=== PATIENT | male | born 1940 | race Caucasian/White ===

== ENCOUNTER 2017-11-15 14:55 | Inpatient (IN) | payer MEDICARE, BC ==
[~2017-11-15] VITALS: Ht 177.8 cm; Wt 75.3 kg
[2017-11-15] VITALS (7 sets, daily range): BP systolic 137–212; BP diastolic 73–91; PULSE 68–87; RESP 15–18; TEMP 97.5–98.5; O2SAT 98
[2017-11-15 16:11] LABS: AUTOMATED NEUTROPHIL # 2.9 TH/MM3 (1.8-7.7); BASOPHIL % 0.4 % (0.0-2.0); EOSINOPHIL % 0.8 % (0.0-4.0); HEMATOCRIT 37.6 % (39.0-51.0); HEMOGLOBIN 12.5 GM/DL (13.0-17.0); LYMPH % 20.3 % (9.0-44.0); LYMPHOCYTE # 0.9 TH/MM3 (1.0-4.8); MEAN CELL VOLUME 85.4 FL (80.0-100.0); MEAN CORPUSCULAR HEMOGLOBIN 28.5 PG (27.0-34.0); MEAN CORPUSCULAR HGB CONC 33.3 % (32.0-36.0); MEAN PLATELET VOLUME 8.1 FL (7.0-11.0); MONO % 14.3 % (0.0-8.0); MONOCYTE # 0.6 TH/MM3 (0-0.9); NEUT % 64.2 % (16.0-70.0); PLATELET COUNT 100 TH/MM3 (150-450); RED CELL DISTRIBUTION WIDTH 17.3 % (11.6-17.2); WHITE BLOOD COUNT 4.5 TH/MM3 (4.0-11.0)
[2017-11-15 16:16] LABS: INTERNATIONAL NORMALIZED RATIO 1.1 RATIO; PROTHROMBIN TIME - PATIENT 10.9 SEC (9.8-11.6)
[2017-11-15 16:21] LABS: ALBUMIN 3.5 GM/DL (3.4-5.0); ALT (GPT) 18 U/L (12-78); AST (GOT) 13 U/L (15-37); BLOOD UREA NITROGEN 22 MG/DL (7-18); CALCIUM 9.4 MG/DL (8.5-10.1); CHLORIDE 103 MEQ/L (98-107); CREATININE 0.95 MG/DL (0.60-1.30); GLOMERULAR FILTRATION RATE 77 ML/MIN (>89); GLUCOSE,RANDOM 128 MG/DL (74-106); SODIUM (NA) 140 MEQ/L (136-145)
[2017-11-15 16:23] LABS: ALKALINE PHOSPHATASE 95 U/L (45-117); TOTAL BILIRUBIN ADULT 0.4 MG/DL (0.2-1.0); TOTAL PROTEIN 7.7 GM/DL (6.4-8.2)
[2017-11-15] MEDS ORDERED: SODIUM CHLORIDE 0.9% FLUSH 10 ML FLUSH IVF PRN (17:15)
[2017-11-15] MEDS ORDERED: VANCOMYCIN INJ 1,000 MG in SODIUM CHLOR 0.9% 250 ML INJ 250 ML IV ONE (17:15)
--- NOTE | 2017-11-15 17:34 | PD ---
HPI Chief Complaint: Skin Problem Time Seen by Provider: 17:08 Travel History International Travel<30 days: No Contact w/Intl Traveler<30days: No Traveled to known affect area: No History of Present Illness HPI Patient is a 77-year-old male presenting to emerge from for evaluation of right hand swelling secondary to a cat bite that he sustained on Sunday evening. Patient was bitten by his own cat which was up-to-date with immunizations. Sunday he presented to [facility] in [place] and was started on Augmentin. Despite the antibiotics his hand continue to swell. He presented there again yesterday and was given IV antibiotics 1 dose and advised to follow -up with a hand surgeon here at [place]. Patient states his pain is a 6 out of 10, is aching and sore. He denies any fever, chills, numbness or weakness. Patient has been taking ibuprofen for pain. Symptom onset was gradual, symptoms are moderate in nature. PFSH Past Medical History Hx Anticoagulant Therapy: No Anxiety: Yes Social History Alcohol Use: No Tobacco Use: No Substance Use: No Allergies-Medications (Allergen,Severity, Reaction): Coded Allergies: No Known Allergies (Unverified , 11/15/17) Reported Meds & Prescriptions Reported Meds & Active Scripts Active Reported Prozac (Fluoxetine HCl) 10 Mg Cap 10 Mg PO DAILY Review of Systems Except as stated in HPI: all other systems reviewed are Neg General / Constitutional: No: Fever, Chills Cardiovascular: No: Chest Pain or Discomfort Respiratory: No: Shortness of Breath Gastrointestinal: No: Nausea, Abdominal Pain Musculoskeletal: Positive: Myalgias, Edema, Pain Skin: Positive Change in Pigmentation, Positive Lesions Neurologic: No: Paresthesia, Sensory Disturbance Physical Exam Narrative GENERAL: Well-developed, well-nourished, alert elderly male. Presenting in no acute distress. SKIN: Warm and dry. Scabbed lesions to the dorsal and palmar aspect of the right wrist. HEAD: Atraumatic. Normocephalic. EYES: Pupils equal and round. No scleral icterus. No injection or drainage. ENT: No nasal bleeding or discharge. Mucous membranes pink and moist. NECK: Trachea midline. No JVD. CARDIOVASCULAR: Regular rate and rhythm. RESPIRATORY: No accessory muscle use. Clear to auscultation. Breath sounds equal bilaterally. GASTROINTESTINAL: Abdomen soft, non-tender, nondistended. Hepatic and splenic margins not palpable. MUSCULOSKELETAL: Extremities without clubbing, cyanosis. No obvious deformities. 2+ pitting edema to right hand, fingers, wrist. Mild erythema noted as well. 2+ radial pulse, brisk less than 3 second capillary refill. Full range of motion in hand and fingers. NEUROLOGICAL: Awake and alert. No obvious cranial nerve deficits. Motor grossly within normal limits. Five out of 5 muscle strength in the arms and legs. Normal speech. PSYCHIATRIC: Appropriate mood and affect; insight and judgment normal. Data Data Last Documented VS Vital Signs Date Time Temp Pulse Resp B/P (MAP) Pulse Ox O2 Delivery O2 Flow Rate FiO2 11/15/17 19:25 72 18 212/86 (128) 98 Room Air 11/15/17 15:28 98.5 Orders Orders Complete Blood Count With Diff (11/15/17 15:34) Comprehensive Metabolic Panel (11/15/17 15:34) Lactic Acid Sepsis Protocol (11/15/17 15:34) Blood Culture (11/15/17 15:34) Prothrombin Time / Inr (Pt) (11/15/17 15:34) C-Reactive Protein (Crp) (11/15/17 17:15) Westergren Sedimentation Rate (11/15/17 17:15) Iv Access Insert/Monitor (11/15/17 17:15) Sodium Chloride 0.9% Flush (Ns Flush) (11/15/17 17:15) Vancomycin Inj (Vancomycin Inj) (11/15/17 17:15) Hand, Complete (Qpb3hhh) (11/15/17 17:32) Clonidine (Catapres) (11/15/17 18:45) Ampicillin-Sulbactam Inj (Unasyn Inj) (11/15/17 19:30) Consult Hand Surgery (11/15/17 ) (Hub Use Only)Inp Phy Cons/Ref (11/15/17 ) Admit Order (Ed Use Only) (11/15/17 19:45) Labs Laboratory Tests Test 11/15/17 15:46 White Blood Count 4.5 TH/MM3 Red Blood Count 4.40 MIL/MM3 Hemoglobin 12.5 GM/DL Hematocrit 37.6 % Mean Corpuscular Volume 85.4 FL Mean Corpuscular Hemoglobin 28.5 PG Mean Corpuscular Hemoglobin Concent 33.3 % Red Cell Distribution Width 17.3 % Platelet Count 100 TH/MM3 Mean Platelet Volume 8.1 FL Neutrophils (%) (Auto) 64.2 % Lymphocytes (%) (Auto) 20.3 % Monocytes (%) (Auto) 14.3 % Eosinophils (%) (Auto) 0.8 % Basophils (%) (Auto) 0.4 % Neutrophils # (Auto) 2.9 TH/MM3 Lymphocytes # (Auto) 0.9 TH/MM3 Monocytes # (Auto) 0.6 TH/MM3 Eosinophils # (Auto) 0.0 TH/MM3 Basophils # (Auto) 0.0 TH/MM3 CBC Comment DIFF FINAL Differential Comment Erythrocyte Sedimentation Rate 34 mm/hr Prothrombin Time 10.9 SEC Prothromb Time International Ratio 1.1 RATIO Blood Urea Nitrogen 22 MG/DL Creatinine 0.95 MG/DL Random Glucose 128 MG/DL Total Protein 7.7 GM/DL Albumin 3.5 GM/DL Calcium Level 9.4 MG/DL Alkaline Phosphatase 95 U/L Aspartate Amino Transf (AST/SGOT) 13 U/L Alanine Aminotransferase (ALT/SGPT) 18 U/L Total Bilirubin 0.4 MG/DL Sodium Level 140 MEQ/L Potassium Level 4.0 MEQ/L Chloride Level 103 MEQ/L Carbon Dioxide Level 30.0 MEQ/L Anion Gap 7 MEQ/L Estimat Glomerular Filtration Rate 77 ML/MIN Lactic Acid Level 1.6 mmol/L C-Reactive Protein 6.10 MG/DL MDM Medical Decision Making Medical Screen Exam Complete: Yes Emergency Medical Condition: Yes Interpretation(s) Vital Signs Date Time Temp Pulse Resp B/P (MAP) Pulse Ox O2 Delivery O2 Flow Rate FiO2 11/15/17 15:28 98.5 71 17 180/82 114 98 Differential Diagnosis Cellulitis versus osteomyelitis versus abscess versus other Narrative Course Patient is a 77-year-old male presented to the emergency department for evaluation of right hand edema and erythema secondary to a Bite that he sustained on Sunday night. Patient's vital signs are stable, labs and imaging ordered and pending. X-ray of the right hand shows no acute abnormality. CBC is unremarkable, chemistry with no acute findings. Lactic acid 1.6, CRP is 6.1, sed rate is 34. Patient was given 1 g of vancomycin IV. Discussed findings with Dr. Roberto Burgess, he was sent pictures of patient's hand. He recommended the patient be placed on Unasyn, patient will be kept n.p.o. after midnight. He recommended that the scabs be debrided to assess whether or not there was any purulent drainage. Scabs were debrided under sterile procedure. No exudate noted. Patient and family were advised on clinical findings as well as plan of care. They are agreeable. Patient is resting comfortably. Dr. Ch accepted admit. Admit orders placed. Additionally patient's blood pressure was elevated , he was given clonidine 0.1 mg orally 1 dose. Diagnosis Primary Impression: Bite from cat Qualified Codes: W55.01XD - Bitten by cat, subsequent encounter Additional Impression: Cellulitis of upper extremity Qualified Codes: L03.113 - Cellulitis of right upper limb Admitting Information Admitting Physician Requests: Admit Condition: Stable Sarah Yousif Nov 15, 2017 17:34
--- NOTE | 2017-11-15 17:49 | RADRPT ---
EXAM DATE: 11/15/2017 5:46 PM EDT AGE/SEX: 77 years / Male INDICATIONS: Right hand pain and swelling after cat bite around thumb area. CLINICAL DATA: This is the patient's initial encounter. Patient reports that signs and symptoms have been present for 1 week and indicates a pain score of 8/10. MEDICAL/SURGICAL HISTORY: None. None. COMPARISON: No prior exams available for comparison. FINDINGS: Bony structures are intact and in normal alignment. Osseous density is normal. Soft tissues are unre markable. No radiopaque foreign bodies seen. CONCLUSION: Negative examination Electronically signed by: Marco A Vernon MD 11/15/2017 5:47 PM EDT
[2017-11-15] MEDS ORDERED: cloNIDine HCL 0.1 MG TAB PO ONE (18:45)
[2017-11-15] MEDS ORDERED: FLUO-1 PO (18:53)
[2017-11-15] MEDS ORDERED: AMPICILLIN-SULBACTAM INJ 3 GM in SODIUM CHLORIDE 0.9% INJ 100 ML IV ONE (19:30)
[2017-11-15] MEDS ORDERED: ACETAMINOPHEN 325 MG TAB PO PRN (20:45)
[2017-11-15] MEDS ORDERED: BISACODYL 10 MG SUPP RECTAL PRN (20:45)
[2017-11-15] MEDS ORDERED: NALOXONE HCL 0.4 MG/ML AMP IV PUSH PRN (20:45)
[2017-11-15] MEDS ORDERED: SODIUM CHLORIDE 0.9% FLUSH 10 ML FLUSH IV FLUSH PRN (20:45)
[2017-11-15] MEDS ORDERED: SENNOSIDES 8.6 MG TAB PO PRN (20:45)
[2017-11-15] MEDS ORDERED: LACTULOSE SYRUP 20 GM/30 ML CUP PO PRN (20:45)
[2017-11-15] MEDS ORDERED: MAGNESIUM HYDROXIDE SUSP 30 ML CUP PO PRN (20:45)
[2017-11-15] MEDS: DOCUSATE SODIUM 50 MG/SENNA 8.6 MG TAB PO SCH (21:00)
[2017-11-15] MEDS: SODIUM CHLORIDE 0.9% FLUSH 10 ML FLUSH IV FLUSH SCH (21:00)
[2017-11-15] MEDS ORDERED: ONDANSETRON ODT 4 MG TAB PO PRN (21:15)
--- NOTE | 2017-11-15 21:39 | HHI.HP ---
HPI Service [facility] Hospitalists Primary Care Physician Unknown Admission Diagnosis CELLULITIS, CAT BITE Diagnoses: Travel History International Travel<30 Days: No Contact w/Intl Traveler <30 Da: No Traveled to Known Affected Are: No History of Present Illness 77-year-old male with a past medical history significant for depression and history of WPW status post ablation presents the emergency department for the evaluation of a swollen, painful right hand. The patient reports that on Sunday night her cat bit him. Patient states his cat is up-to-date on all his vaccinations. By Sunday morning the patient was seen in urgent care and given tetanus and Augmentin. Despite compliance with the medication the patient 's symptoms did not improve and he was seen again in urgent care who recommended evaluation in the emergency department. On Sunday, the patient was seen in the ER at [facility] who gave him 1 dose of IV antibiotics and referred him to a hand surgeon. The patient contacted the hand surgeon who recommended evaluation at [place]. The patient denies any fever/chills. No chest pain or shortness of breath. No abdominal pain. No nausea/vomiting/ diarrhea. No lateralizing signs/symptoms. Review of Systems Except as stated in HPI: all other systems reviewed are Neg Past Family Social History Past Medical History Depression History of Wgsvm-Dpaulrjun-Xbyrk status post ablation Past Surgical History Cyst removed from lumbar spine Cardiac ablation Left foot surgery secondary to trauma Reported Medications Reported Meds & Active Scripts Active Reported Prozac (Fluoxetine HCl) 10 Mg Cap 10 Mg PO DAILY Allergies: Coded Allergies: No Known Allergies (Unverified , 11/15/17) Family History Negative for CAD/DM Social History Remote history of tobacco. Drinks approximately 2 small cocktails nightly. Denies illicit drugs. Physical Exam Vital Signs Vital Signs Date Time Temp Pulse Resp B/P (MAP) Pulse Ox O2 Delivery O2 Flow Rate FiO2 11/15/17 21:14 78 18 137/78 (97) 98 Room Air 11/15/17 21:08 81 18 137/75 (95) 98 Room Air 11/15/17 20:36 87 187/78 (114) 11/15/17 19:25 72 18 212/86 (128) 98 Room Air 11/15/17 17:50 70 11/15/17 17:50 68 15 212/91 (131) 98 Room Air 11/15/17 15:28 98.5 71 17 180/82 (114) 98 Physical Exam GENERAL: male sitting up in bed SKIN: Right hand with significant erythema and edema, worse on the dorsal aspect. Multiple puncture wounds that are nondraining present. HEAD: Atraumatic. Normocephalic. No temporal or scalp tenderness. EYES: Pupils equal round and reactive. Extraocular motions intact. No scleral icterus. No injection or drainage. ENT: Nose without bleeding, purulent drainage or septal hematoma. Throat without erythema, tonsillar hypertrophy or exudate. Uvula midline. Airway patent. NECK: Trachea midline. No JVD or lymphadenopathy. Supple, nontender, no meningeal signs. CARDIOVASCULAR: Regular rate and rhythm without murmurs, gallops, or rubs. RESPIRATORY: Clear to auscultation. Breath sounds equal bilaterally. No wheezes , rales, or rhonchi. GASTROINTESTINAL: Abdomen soft, non-tender, nondistended. No hepato-splenomegaly , or palpable masses. No guarding. MUSCULOSKELETAL: Unable to dorsiflex the wrist. Full range of motion all 5 digits on the right hand. Wrist flexion intact. NEUROLOGICAL: Awake and alert. Cranial nerves II through XII intact. Motor and sensory grossly within normal limits. Normal speech. Laboratory Laboratory Tests Test 11/15/17 15:46 White Blood Count 4.5 Red Blood Count 4.40 Hemoglobin 12.5 Hematocrit 37.6 Mean Corpuscular Volume 85.4 Mean Corpuscular Hemoglobin 28.5 Mean Corpuscular Hemoglobin Concent 33.3 Red Cell Distribution Width 17.3 Platelet Count 100 Mean Platelet Volume 8.1 Neutrophils (%) (Auto) 64.2 Lymphocytes (%) (Auto) 20.3 Monocytes (%) (Auto) 14.3 Eosinophils (%) (Auto) 0.8 Basophils (%) (Auto) 0.4 Neutrophils # (Auto) 2.9 Lymphocytes # (Auto) 0.9 Monocytes # (Auto) 0.6 Eosinophils # (Auto) 0.0 Basophils # (Auto) 0.0 CBC Comment DIFF FINAL Differential Comment Erythrocyte Sedimentation Rate 34 Prothrombin Time 10.9 Prothromb Time International Ratio 1.1 Blood Urea Nitrogen 22 Creatinine 0.95 Random Glucose 128 Total Protein 7.7 Albumin 3.5 Calcium Level 9.4 Alkaline Phosphatase 95 Aspartate Amino Transf (AST/SGOT) 13 Alanine Aminotransferase (ALT/SGPT) 18 Total Bilirubin 0.4 Sodium Level 140 Potassium Level 4.0 Chloride Level 103 Carbon Dioxide Level 30.0 Anion Gap 7 Estimat Glomerular Filtration Rate 77 Lactic Acid Level 1.6 C-Reactive Protein 6.10 Date/Time Source Procedure Growth Status 11/15/17 15:53 Blood Peripheral Aerobic Blood Culture Pending Received 11/15/17 15:53 Blood Peripheral Anaerobic Blood Culture Pending Received Result Diagram: 11/15/17 1546 11/15/17 1546 Caprini VTE Risk Assessment Caprini VTE Risk Assessment: Mod/High Risk (score >= 2) Caprini Risk Assessment Model Point Value = 1 Point Value = 2 Point Value = 3 Point Value = 5 Age 41-60 Minor surgery BMI > 25 kg/m2 Swollen legs Varicose veins or History of unexplained or recurrent spontaneous Oral contraceptives or hormone replacement Sepsis (< 1 month) Serious lung disease, including pneumonia (< 1 month) Abnormal pulmonary function Acute myocardial infarction Congestive heart failure (< 1 month) History of inflammatory bowel disease Medical patient at bed rest Age 61-74 Arthroscopic surgery Major open surgery (> 45 min) Laparoscopic surgery (> 45 min) Malignancy Confined to bed (> 72 hours) Immobilizing plaster cast Central venous access Age >= 75 History of VTE Family history of VTE Factor V Leiden Prothrombin [id number] Lupus anticoagulant Anticardiolipin antibodies Elevated serum homocysteine Heparin-induced thrombocytopenia Other congenital or acquired thrombophilia Stroke (< 1 month) Elective arthroplasty Hip, pelvis, or leg fracture Acute spinal cord injury (< 1 month) Prophylaxis Regimen Total Risk Factor Score Risk Level Prophylaxis Regimen 0-1 Low Early ambulation 2 Moderate Order ONE of the following: *Sequential Compression Device (SCD) *Heparin 5000 units SQ BID 3-4 Higher Order ONE of the following medications: *Heparin 5000 units SQ TID *Enoxaparin/Lovenox 40 mg SQ daily (WT < 150 kg, CrCl > 30 mL/min) *Enoxaparin/Lovenox 30 mg SQ daily (WT < 150 kg, CrCl > 10-29 mL/min) *Enoxaparin/Lovenox 30 mg SQ BID (WT < 150 kg, CrCl > 30 mL/min) AND/OR *Sequential Compression Device (SCD) 5 or more Highest Order ONE of the following medications: *Heparin 5000 units SQ TID (Preferred with Epidurals) *Enoxaparin/Lovenox 40 mg SQ daily (WT < 150 kg, CrCl > 30 mL/min) *Enoxaparin/Lovenox 30 mg SQ daily (WT < 150 kg, CrCl > 10-29 mL/min) *Enoxaparin/Lovenox 30 mg SQ BID (WT < 150 kg, CrCl > 30 mL/min) AND *Sequential Compression Device (SCD) Assessment and Plan Assessment and Plan Assessment/plan: 1. Cat bite/cellulitis CRP, ESR elevated Hand surgery consulted, appreciate assistance Unasyn 2. Depression Continue home Prozac FEN N.p.o. Electrolytes: Monitor and replete as needed NS at 100 cc/hour Holding pharmacologic anticoagulation for possible operative intervention Physician Certification 2 Midnight Certification Type: Admission for Inpatient Services Order for Inpatient Services The services are ordered in accordance with Medicare regulations or non- Medicare payer requirements, as applicable. In the case of services not specified as inpatient-only, they are appropriately provided as inpatient services in accordance with the 2-midnight benchmark. Estimated LOS (days): 2 2 days is the estimated time the patient will need to remain in the hospital, assuming treatment plan goals are met and no additional complications. Post-Hospital Plan: Not yet determined Marlena Ch MD Nov 15, 2017 21:39
[2017-11-15] MEDS: SODIUM CHLOR 0.9% 1000 ML INJ 1,000 ML IV SCH (23:04)
[2017-11-16] MEDS ORDERED: AMPICILLIN-SULBACTAM INJ 3 GM VIAL IM SCH (01:30)
[2017-11-16] MEDS: AMPICILLIN/SULBAC 3 GM/NS 100 ML IV SCH ×8 (02:25→20:57)
[2017-11-16 04:00] VITALS: BP 152/79; PULSE 70; RESP 16; TEMP 97.9; O2SAT 96
[2017-11-16] MEDS: MORPHINE SULFATE 4 MG/ML INJ IV PRN ×2 (04:12→09:17)
[2017-11-16 06:13] LABS: AUTOMATED NEUTROPHIL # 2.1 TH/MM3 (1.8-7.7); BASOPHIL % 0.4 % (0.0-2.0); HEMATOCRIT 33.3 % (39.0-51.0); HEMOGLOBIN 11.3 GM/DL (13.0-17.0); LYMPH % 24.5 % (9.0-44.0); LYMPHOCYTE # 0.8 TH/MM3 (1.0-4.8); MEAN CORPUSCULAR HEMOGLOBIN 28.9 PG (27.0-34.0); MEAN PLATELET VOLUME 8.2 FL (7.0-11.0); MONO % 11.7 % (0.0-8.0); MONOCYTE # 0.4 TH/MM3 (0-0.9); NEUT % 62.4 % (16.0-70.0); PLATELET COUNT 89 TH/MM3 (150-450); RED BLOOD COUNT 3.91 MIL/MM3 (4.50-5.90); RED CELL DISTRIBUTION WIDTH 17.4 % (11.6-17.2); WHITE BLOOD COUNT 3.4 TH/MM3 (4.0-11.0)
[2017-11-16] MEDS: SODIUM CHLOR 0.9% 1000 ML INJ 1,000 ML IV SCH ×3 (06:45→23:27)
[2017-11-16 06:56] LABS: BICARBONATE 25.3 MEQ/L (21.0-32.0); CALCIUM 8.4 MG/DL (8.5-10.1); CREATININE 0.72 MG/DL (0.60-1.30)
[2017-11-16 08:00] VITALS: BP 144/67; PULSE 69; RESP 20; TEMP 98.2; O2SAT 94
[2017-11-16] MEDS: SODIUM CHLORIDE 0.9% FLUSH 10 ML FLUSH IV FLUSH SCH ×2 (08:26→21:00)
[2017-11-16] MEDS: DOCUSATE SODIUM 50 MG/SENNA 8.6 MG TAB PO SCH ×2 (08:26→21:00)
[2017-11-16] MEDS: FLUoxetine HCL 10 MG CAP PO SCH (08:27)
--- NOTE | 2017-11-16 10:34 | HHI.PR ---
Subjective Remarks Follow-up cat bite/right hand cellulitis/failed outpatient therapy November 16, 2017-patient seen and examined, reports improvement of right hand swelling however continued to complain of pain. Currently afebrile. N.p.o. pending I&D from hand surgeon plan for today Objective Vitals Vital Signs Date Time Temp Pulse Resp B/P (MAP) Pulse Ox O2 Delivery O2 Flow Rate FiO2 11/16/17 08:00 98.2 69 20 144/67 (92) 94 11/16/17 04:00 97.9 70 16 152/79 (103) 96 11/15/17 22:30 97.5 70 18 146/73 (97) 98 11/15/17 22:29 11/15/17 21:14 78 18 137/78 (97) 98 Room Air 11/15/17 21:08 81 18 137/75 (95) 98 Room Air 11/15/17 20:36 87 187/78 (114) 11/15/17 19:25 72 18 212/86 (128) 98 Room Air 11/15/17 17:50 70 11/15/17 17:50 68 15 212/91 (131) 98 Room Air 11/15/17 15:28 98.5 71 17 180/82 (114) 98 I/O 11/15/17 11/15/17 11/15/17 11/16/17 11/16/17 11/16/17 07:00 15:00 23:00 07:00 15:00 23:00 Intake Total 350 ml 0 ml Output Total 0 ml Balance 350 ml 0 ml Intake Oral 0 ml IV Total 350 ml Output Urine Total 0 ml # Bowel Movements 0 Result Diagram: 11/16/17 0345 11/16/17 0345 Imaging Last Impressions Hand X-Ray 11/15/17 140 Signed Impressions: CONCLUSION: Negative examination Objective Remarks GENERAL: NAD SKIN: Warm and dry.right hand with erythema, minimal induration HEAD: Normocephalic. EYES: No scleral icterus. No injection or drainage. sutures to left eyebrow NECK: Supple, trachea midline. No JVD or lymphadenopathy. CARDIOVASCULAR: Regular rate and rhythm without murmurs, gallops, or rubs. RESPIRATORY: Breath sounds equal bilaterally. No accessory muscle use. GASTROINTESTINAL: Abdomen soft, non-tender, nondistended. MUSCULOSKELETAL: No cyanosis, or edema. BACK: Nontender without obvious deformity. No CVA tenderness. A/P Problem List: (1) Bite from cat ICD Code: W55.01XA - Bitten by cat, initial encounter Status: Acute (2) Cellulitis of upper extremity ICD Code: L03.119 - Cellulitis of unspecified part of limb Status: Acute Assessment and Plan 77-year-old man with 1. Cat bite/cellulitis CRP, ESR elevated Hand surgery consulted, appreciate assistance. Plan for incision and drainage today November 16, 2017 Continue with Unasyn pending culture report 2. Depression Continue home Prozac DVT prophylaxis:Low risk for VTE Problem Qualifiers (1) Bite from cat: Qualified Codes: W55.01XD - Bitten by cat, subsequent encounter (2) Cellulitis of upper extremity: Qualified Codes: L03.113 - Cellulitis of right upper limb Gregory Vazquez MD Nov 16, 2017 10:34
[2017-11-16 12:00] VITALS: BP 159/72; PULSE 66; RESP 20; TEMP 98.3; O2SAT 94
[2017-11-16] MEDS ORDERED: LIDOCAINE HCL 1% PF 5 ML SYRINGE OTHER ONE (12:00)
[2017-11-16] MEDS ORDERED: ONDANSETRON HCL 4 MG/2 ML VIAL IV PUSH ONE (12:00)
[2017-11-16] MEDS ORDERED: PROPOFOL 200 MG/20 ML AMP IV ONE (12:00)
[2017-11-16 16:00] VITALS: BP 157/72; PULSE 71; RESP 20; TEMP 98.4; O2SAT 94
[2017-11-16 20:00] VITALS: BP 167/77; PULSE 77; RESP 18; TEMP 98.4; O2SAT 95
[2017-11-16 20:04] VITALS: PULSE 80
[2017-11-16] MEDS ORDERED: GENTAMICIN SULFATE 80 MG/2 ML VIAL ONE (20:05)
[2017-11-16] MEDS ORDERED: METOPROLOL TARTRATE 25 MG TAB PO PRN (20:45)
[2017-11-16] MEDS ORDERED: SODIUM CHLORID 0.9% 500 ML IV PRN (20:45)
[2017-11-16] MEDS ORDERED: CHLORHEXIDINE GLUCONATE 2 % 1 PACK (2 CLOTHS) TOPICAL PRN (20:45)
[2017-11-16] MEDS ORDERED: POVIDONE IODINE 5% (ANTISEPSIS KIT) 4 APPLICATIONS EACH NARE PRN (20:45)
[2017-11-16] MEDS ORDERED: LACTATED RINGER'S 1000 ML IV PRN (20:45)
--- NOTE | 2017-11-16 21:18 | MB ---
cc: Ever Conner MD, Srikanth MD DATE: 11/16/2017 REASON FOR CONSULTATION: Cat bite to right wrist and hand. HISTORY OF PRESENT ILLNESS: The patient is a 77-year-old right-hand dominant male with a history of depression and WPW syndrome presenting with complaints of pain, swelling involving the right hand and wrist for the past 1 week. The patient states last Deondre he was bitten by a cat. The patient noticed swelling and redness and he was seen at urgent care. He was put on p.o. Augmentin. Despite p.o. medication, the patient continued to have worsening symptoms and he was seen again in the urgent care and was later referred to the emergency department. The patient was seen at [facility] ER. He had 1 dose of IV antibiotics and referred to hand surgery. The patient was admitted to [facility] with worsening symptoms involving the right wrist and hand. He complains of pain. He also complains of worsening pain with wrist range of motion. Denies any drainage. Denies any fever or chills. Denies any tingling, numbness. PAST MEDICAL HISTORY: Significant for depression and WPW syndrome, status post ablation. PAST SURGICAL HISTORY: Significant for spine and left foot surgery. PHYSICAL EXAMINATION: GENERAL: The patient is alert, oriented x3. EXTREMITIES: Examination of right upper extremity reveals multiple bite wounds over the dorsal aspect of the wrist and hand. There is evidence of swelling around the dorsal aspect of the hand and wrist. Tenderness noted over the dorsal aspect of the wrist and hand. He also has mild redness along the forearm. Wrist range of motion is limited and painful. When making a fist, he has limitation of finger flexion. Extension of the fingers are associated with pain over the dorsal aspect of the wrist. He has intact sensation distally. He has intact distal capillary refill. LABORATORY DATA: He has a white count of 4.5 with a neutrophil shift of 64%. IMAGING STUDIES: X-rays of the right hand show evidence of soft tissue swelling. No evidence of radiopaque foreign body. ASSESSMENT: A 77-year-old male with a cat bite to the right hand and wrist with failed outpatient antibiotic treatment. PLAN: We will take the patient for surgery for exploration, possibly the patient has extensor tenosynovitis. The patient was consented for incision and drainage of right wrist and hand. We will continue with IV antibiotics and limb elevation. Ever Conner MD SE/ , 08:51 PM , 09:17 PM HALI
[2017-11-16] MEDS ORDERED: DO NOT ADM ANY ANTICOAGULANT DRUGS PRN (22:30)
[2017-11-16] MEDS ORDERED: *morphine SULFATE 4 MG/ML PERIprocedure ONLY ONE ×2 (22:37→22:53)
--- NOTE | 2017-11-16 22:47 | PD.OP ---
Operative Report Preoperative Diagnosis: (1) Cat bite of multiple sites of right hand and wrist with infection Postoperative Diagnosis: (1) extensor tenosynovitis II and III compartments (2) Cat bite of multiple sites of right hand and wrist with infection Procedure: exploration, incision and drainage, extensor tenosynovectomy and release II and III compartments right wrist/hand Anesthesia: general Surgeon: Ever Conner Parts Specialist(s): lee ann Operation and Findings: extensive subcutaneous inflammation right wrist and hand purulence with extensor tenosynovitis II and III compartments right wrist Ever Conner MD Nov 16, 2017 22:47
--- NOTE | 2017-11-16 23:11 | MP ---
cc: Ever Conner MD, Srikanth MD DATE OF OPERATION: 11/16/2017 PREOPERATIVE DIAGNOSIS: Cat bite with infection, right hand and wrist. POSTOPERATIVE DIAGNOSIS: Cat bite, right hand and wrist with infection, extensor tenosynovitis second and third compartments, right wrist. PROCEDURE: Exploration, incision and drainage, extensor tenosynovectomy and release, second and third compartments, right wrist. SURGEON: Ever Conner MD ANESTHESIA: General. ESTIMATED BLOOD LOSS: Minimal. TOURNIQUET TIME: 40 minutes at 250 mmHg. SPECIMEN: Sent for culture and sensitivity. Two specimens were sent, one was subcutaneous, the other one was from the extensor compartment DISPOSITION: To PACU stable. INDICATIONS: The patient is a 77-year-old male who was admitted to the hospital with history of cat bite to the right hand and wrist a week ago. The patient was initially treated at an outside facility with p.o. antibiotics and IV antibiotics. He was admitted with worsening pain and swelling involving the right wrist and hand. The patient also complained of pain with wrist and finger range of motion. On examination, he had multiple bite diego over the dorsal aspect of the hand and wrist. Tenderness noted over the extensor compartments of the wrist and hand. The patient was consented for incision and drainage of cat bite infection to right wrist fusion. The patient was explained the risks and benefits of the procedure. DESCRIPTION OF PROCEDURE: The patient was brought to the operating room under general anesthesia. The right upper extremity was sterilely prepped and draped. After limb elevation, tourniquet was inflated to 250 mmHg. A curvilinear incision was then marked over the dorsal aspect of the wrist measuring about 4-5 cm. Incision was then made over the proposed incision site. Soft tissue dissection was carried out. There was extensive inflammatory tissue in the subcutaneous location and over the extensor retinaculum of the wrist. On further exploration, there was evidence of bulging of the second extensor compartment. The second extensor compartment was initially released at the distal part of the incision. There was evidence of purulence within the second extensor compartment. The specimen was sent for culture and sensitivity. The second extensor compartment was released. There was evidence of extensor carpi radialis brevis tendon being stretched out and thinned out with fraying from infection. On further exploration, there appeared to be involvement of the third extensor compartment. The third extensor compartment was then released in a distal to proximal direction. The EPL tendon was found to be involved with thinning, narrowing and surrounding inflammatory tissue. Excisional debridement of the extensor tenosynovium of the second and third compartments was carried out. The extensor carpi radialis tendon longus was found to be intact. The fourth compartment was opened and there was found no involvement of the extensor tendons. The EPL was then transposed subcutaneously. Thorough wash was given using normal saline mixed with irrigant and about 1 liter of solution was used. Tourniquet was deflated after 40 minutes. He had good distal circulation after release of tourniquet. Bleeding points were cauterized with bipolar cautery. The skin flaps were then loosely approximated using 4-0 nylon in a horizontal mattress fashion. Packing of the wounds in the compartments were carried out prior to the closure. The patient had good distal circulation at the end of the procedure. He was recovered and sent to recovery in stable condition. We will continue with limb elevation, IV antibiotics and change the dressing tomorrow. Ever Conner MD SE/ , 10:52 PM , 11:10 PM HALI
[2017-11-17] VITALS: BP 148/66; PULSE 92; RESP 18; TEMP 98.3; O2SAT 95
[2017-11-17] MEDS: AMPICILLIN/SULBAC 3 GM/NS 100 ML IV SCH ×8 (03:11→20:15)
[2017-11-17] MEDS: MORPHINE SULFATE 4 MG/ML INJ IV PRN ×5 (05:21→17:52)
[2017-11-17 08:00] VITALS: BP 150/59; PULSE 86; RESP 18; TEMP 98.2; O2SAT 98
[2017-11-17] MEDS: SODIUM CHLORIDE 0.9% FLUSH 10 ML FLUSH IV FLUSH SCH ×2 (08:03→20:15)
[2017-11-17] MEDS: DOCUSATE SODIUM 50 MG/SENNA 8.6 MG TAB PO SCH ×2 (08:07→20:16)
[2017-11-17] MEDS: FLUoxetine HCL 10 MG CAP PO SCH (08:07)
--- NOTE | 2017-11-17 10:22 | HHI.PR ---
Subjective Remarks Follow-up cat bite/right hand cellulitis/failed outpatient therapy November 16, 2017-patient seen and examined, reports improvement of right hand swelling however continued to complain of pain. Currently afebrile. N.p.o. pending I&D from hand surgeon plan for today November 17, 2017-patient seen and examined, is status post incision and drainage of right hand. Report of some throbbing pain otherwise stable. Afebrile Objective Vitals Vital Signs Date Time Temp Pulse Resp B/P (MAP) Pulse Ox O2 Delivery O2 Flow Rate FiO2 11/17/17 08:00 98.2 86 18 150/59 (89) 98 11/17/17 05:26 16 11/17/17 00:00 98.3 92 18 148/66 (93) 95 11/16/17 23:30 98.4 84 15 139/65 (89) 97 Nasal Cannula 2 11/16/17 23:15 84 18 141/67 (91) 92 Nasal Cannula 2 11/16/17 23:00 80 14 146/66 (92) 96 Nasal Cannula 2 11/16/17 22:45 76 12 154/73 (100) 98 Nasal Cannula 2 11/16/17 22:30 99.1 78 12 143/70 (94) 97 Nasal Cannula 2 11/16/17 20:04 80 11/16/17 20:00 98.4 77 18 167/77 (107) 95 11/16/17 20:00 99.2 84 16 169/77 (107) 93 11/16/17 16:00 98.4 71 20 157/72 (100) 94 11/16/17 12:00 98.3 66 20 159/72 (101) 94 I/O 11/16/17 11/16/17 11/16/17 11/17/17 11/17/17 11/17/17 07:00 15:00 23:00 07:00 15:00 23:00 Intake Total 0 ml 0 ml 240 ml Output Total 0 ml 500 ml Balance 0 ml 0 ml -260 ml Intake Oral 0 ml 0 ml 240 ml Output Urine Total 0 ml 500 ml # Voids 2 # Bowel Movements 0 2 0 Result Diagram: 11/16/17 0345 11/16/17 0345 Objective Remarks GENERAL: NAD SKIN: Warm and dry.right hand with erythema, minimal induration HEAD: Normocephalic. EYES: No scleral icterus. No injection or drainage. sutures to left eyebrow NECK: Supple, trachea midline. No JVD or lymphadenopathy. CARDIOVASCULAR: Regular rate and rhythm without murmurs, gallops, or rubs. RESPIRATORY: Breath sounds equal bilaterally. No accessory muscle use. GASTROINTESTINAL: Abdomen soft, non-tender, nondistended. MUSCULOSKELETAL: No cyanosis, or edema. RUE in dressing and attached to a pole BACK: Nontender without obvious deformity. No CVA tenderness. Procedures Exploration, incision and drainage, extensor tenosynovectomy and release, second and third compartments, right wrist. A/P Problem List: (1) Bite from cat ICD Code: W55.01XA - Bitten by cat, initial encounter Status: Acute (2) Cellulitis of upper extremity ICD Code: L03.119 - Cellulitis of unspecified part of limb Status: Acute Assessment and Plan 77-year-old man with 1. Cat bite/cellulitis CRP, ESR elevated Hand surgery consulted, appreciate assistance. s/p Exploration, incision and drainage, extensor tenosynovectomy and release, second and third compartments, right wrist 11/16/17 Continue with Unasyn pending culture report 2. Depression Continue home Prozac DVT prophylaxis:Low risk for VTE Problem Qualifiers (1) Bite from cat: Qualified Codes: W55.01XD - Bitten by cat, subsequent encounter (2) Cellulitis of upper extremity: Qualified Codes: L03.113 - Cellulitis of right upper limb Gregory Vazquez MD Nov 17, 2017 10:22
[2017-11-17] MEDS: SODIUM CHLOR 0.9% 1000 ML INJ 1,000 ML IV SCH ×2 (11:16→22:11)
[2017-11-17 12:00] VITALS: BP 162/71; PULSE 88; RESP 18; TEMP 98.3; O2SAT 97
--- NOTE | 2017-11-17 12:30 | HHI.PR ---
Subjective Remarks complains of pain no fever no numbness Objective Vital Signs Date Time Temp Pulse Resp B/P (MAP) Pulse Ox O2 Delivery O2 Flow Rate FiO2 11/17/17 08:00 98.2 86 18 150/59 (89) 98 11/17/17 05:26 16 11/17/17 00:00 98.3 92 18 148/66 (93) 95 11/16/17 23:30 98.4 84 15 139/65 (89) 97 Nasal Cannula 2 11/16/17 23:15 84 18 141/67 (91) 92 Nasal Cannula 2 11/16/17 23:00 80 14 146/66 (92) 96 Nasal Cannula 2 11/16/17 22:45 76 12 154/73 (100) 98 Nasal Cannula 2 11/16/17 22:30 99.1 78 12 143/70 (94) 97 Nasal Cannula 2 11/16/17 20:04 80 11/16/17 20:00 98.4 77 18 167/77 (107) 95 11/16/17 20:00 99.2 84 16 169/77 (107) 93 11/16/17 16:00 98.4 71 20 157/72 (100) 94 I/O 11/16/17 11/16/17 11/16/17 11/17/17 11/17/17 11/17/17 07:00 15:00 23:00 07:00 15:00 23:00 Intake Total 0 ml 0 ml 240 ml Output Total 0 ml 500 ml Balance 0 ml 0 ml -260 ml Intake Oral 0 ml 0 ml 240 ml Output Urine Total 0 ml 500 ml # Voids 2 # Bowel Movements 0 2 0 right upper extremity: dressing and packing in place surrounding swelling noted minimal drainage range of motion of the wrist and fingers are limited and painful intact sensation cultures: negative to date Result Diagram: 11/16/17 0345 11/16/17 0345 Assessment and Plan Assessment and Plan 77 year old male s/p exploration, extensor tenosynovectomy with release II and III compartments right wrist POD 1 Plan: packing pulled out about 2 cms dry dressing applied wrist and finger range of motion exercises keep the part elevated to IV pole continue antibiotics may need half-way IV, will obtain infectious disease consult. hand surgery will follow Ever Conner MD Nov 17, 2017 12:30
--- NOTE | 2017-11-17 14:58 | EKG ---
Date Performed: 11/16/2017 Time Performed: 20:30:15 PTAGE: 77 years EKG: Sinus rhythm MARKED LEFT AXIS DEVIATION INCOMPLETE RIGHT BUNDLE BRANCH BLOCK ABNORMAL ECG NO PREVIOUS TRACING DOCTOR: Jl Griffiths Interpretating Date/Time 11/17/2017 14:57:31
[2017-11-17 16:00] VITALS: BP 145/67; PULSE 101; RESP 18; TEMP 99; O2SAT 96
[2017-11-17 20:00] VITALS: BP 165/69; PULSE 116; RESP 20; TEMP 98; O2SAT 96
[2017-11-18] VITALS: BP 146/69; PULSE 93; RESP 20; TEMP 97.8; O2SAT 96
[2017-11-18] MEDS: AMPICILLIN/SULBAC 3 GM/NS 100 ML IV SCH ×10 (02:00→20:38)
[2017-11-18 04:00] VITALS: BP 159/73; PULSE 92; RESP 20; TEMP 98.1; O2SAT 97
[2017-11-18 08:00] VITALS: BP 163/73; PULSE 84; RESP 18; TEMP 97.9; O2SAT 95
[2017-11-18] MEDS: MORPHINE SULFATE 4 MG/ML INJ IV PRN ×4 (08:17→17:54)
[2017-11-18] MEDS: FLUoxetine HCL 10 MG CAP PO SCH (08:17)
[2017-11-18] MEDS: DOCUSATE SODIUM 50 MG/SENNA 8.6 MG TAB PO SCH ×2 (08:17→20:38)
[2017-11-18] MEDS: SODIUM CHLORIDE 0.9% FLUSH 10 ML FLUSH IV FLUSH SCH ×2 (08:20→20:38)
[2017-11-18] MEDS: SODIUM CHLOR 0.9% 1000 ML INJ 1,000 ML IV SCH ×2 (08:20→20:38)
--- NOTE | 2017-11-18 10:16 | HHI.PR ---
Subjective Remarks Follow-up cat bite/right hand cellulitis/failed outpatient therapy November 16, 2017-patient seen and examined, reports improvement of right hand swelling however continued to complain of pain. Currently afebrile. N.p.o. pending I&D from hand surgeon plan for today November 17, 2017-patient seen and examined, is status post incision and drainage of right hand. Report of some throbbing pain otherwise stable. Afebrile November 18, 2017-patient seen and examined, requesting that stable from his left eye be removed today. Reports improvement of right hand pain. Objective Vitals Vital Signs Date Time Temp Pulse Resp B/P (MAP) Pulse Ox O2 Delivery O2 Flow Rate FiO2 11/18/17 08:00 97.9 84 18 163/73 (103) 95 11/18/17 04:00 98.1 92 20 159/73 (101) 97 11/18/17 00:00 97.8 93 20 146/69 (94) 96 11/17/17 20:00 98.0 116 20 165/69 (101) 96 11/17/17 16:00 99.0 101 18 145/67 (93) 96 11/17/17 12:00 98.3 88 18 162/71 (101) 97 I/O 11/17/17 11/17/17 11/17/17 11/18/17 11/18/17 11/18/17 07:00 15:00 23:00 07:00 15:00 23:00 Intake Total 240 ml 1338 ml 100 ml Output Total 500 ml 1900 ml 800 ml Balance -260 ml -562 ml -700 ml Intake Oral 240 ml 240 ml IV Total 1098 ml 100 ml Output Urine Total 500 ml 1900 ml 800 ml # Bowel Movements 0 Result Diagram: 11/16/17 0345 11/16/17 0345 Objective Remarks GENERAL: NAD SKIN: Warm and dry.dressing to right arm; elevated to Pole HEAD: Normocephalic. EYES: No scleral icterus. No injection or drainage. sutures to left eyebrow NECK: Supple, trachea midline. No JVD or lymphadenopathy. CARDIOVASCULAR: Regular rate and rhythm without murmurs, gallops, or rubs. RESPIRATORY: Breath sounds equal bilaterally. No accessory muscle use. GASTROINTESTINAL: Abdomen soft, non-tender, nondistended. MUSCULOSKELETAL: No cyanosis, or edema. RUE in dressing and elevated to pole BACK: Nontender without obvious deformity. No CVA tenderness. Procedures Exploration, incision and drainage, extensor tenosynovectomy and release, second and third compartments, right wrist. A/P Problem List: (1) Bite from cat ICD Code: W55.01XA - Bitten by cat, initial encounter Status: Acute (2) Cellulitis of upper extremity ICD Code: L03.119 - Cellulitis of unspecified part of limb Status: Acute Assessment and Plan 77-year-old man with 1. Cat bite/cellulitis CRP, ESR elevated Hand surgery consulted, appreciate assistance. s/p Exploration, incision and drainage, extensor tenosynovectomy and release, second and third compartments, right wrist 11/16/17 Continue with Unasyn pending culture report Consult infectious disease specialist 2. Depression Continue home Prozac Remove jessica from left eyebrow DVT prophylaxis:Low risk for VTE Problem Qualifiers (1) Bite from cat: Qualified Codes: W55.01XD - Bitten by cat, subsequent encounter (2) Cellulitis of upper extremity: Qualified Codes: L03.113 - Cellulitis of right upper limb Gregory Vazquez MD Nov 18, 2017 10:16
[2017-11-18 12:00] VITALS: BP 127/63; PULSE 92; RESP 18; TEMP 98; O2SAT 97
[2017-11-18 16:00] VITALS: BP 135/67; PULSE 92; RESP 18; TEMP 97.8; O2SAT 96
[2017-11-18 20:00] VITALS: BP 145/72; PULSE 104; RESP 17; TEMP 98; O2SAT 92
--- NOTE | 2017-11-18 20:17 | PD.ID.CON ---
History of Present Illness Service ID Consult Requested By Dr Conner Reason for Consult R hand tenosynovitis Primary Care Physician Unknown Diagnoses: History of Present Illness 77 yo male with unremarkable past med history presented with 1 week s/p his cat biite into R hand (last sunday) Hand started to swell, got erythematous shortly after the bite He got Tetanus up to date Pt was placed on Augmentin Sunday, but cont to get worse He presented afebrile, with normal WBC He was underwent I+D on the day of admission s/p Exploration, incision and drainage, extensor tenosynovectomy and release, second and third compartments, right wrist. by Dr Conner He is on Unasyn op wound clx with NGTD Review of Systems Except as stated in HPI: all other systems reviewed are Neg Past Family Social History Allergies: Coded Allergies: No Known Allergies (Unverified , 11/15/17) Past Medical History Depression History of Soapx-Opwcbfeyu-Tgrha status post ablation Past Surgical History Cyst removed from lumbar spine Cardiac ablation Left foot surgery secondary to trauma Active Ordered Medications Medications where reviewed in EMR Antibiotics Include: Unasyn Family History Negative for CAD/DM Social History Remote history of tobacco. Drinks approximately 2 small cocktails nightly. Denies illicit drugs. Physical Exam Vital Signs Vital Signs Date Time Temp Pulse Resp B/P (MAP) Pulse Ox O2 Delivery O2 Flow Rate FiO2 11/18/17 16:00 97.8 92 18 135/67 (89) 96 11/18/17 12:00 98.0 92 18 127/63 (84) 97 11/18/17 08:00 97.9 84 18 163/73 (103) 95 11/18/17 04:00 98.1 92 20 159/73 (101) 97 11/18/17 00:00 97.8 93 20 146/69 (94) 96 11/17/17 20:00 98.0 116 20 165/69 (101) 96 Physical Exam CONSTITUTIONAL/GENERAL: This is an adequately nourished patient, in no apparent distress. TUBES/LINES/DRAINS: SKIN: No jaundice, rashes, or lesions. Skin temperature appropriate. Not diaphoretic. HEAD: Atraumatic. Normocephalic. EYES: Pupils equal and round and reactive. Extraocular motions intact. No scleral icterus. No injection or drainage. Fundi not examined. ENT: Hearing grossly normal. Nose without bleeding or purulent drainage. Throat without visible erythema, exudates, masses, or lesions. NECK: Trachea midline. Supple, nontender. No palpable thyroid enlargement or nodularity. CARDIOVASCULAR: Regular rate and rhythm without murmurs, gallops, or rubs. No JVD. Peripheral pulses symmetric. RESPIRATORY/CHEST: Symmetric, unlabored respirations. Clear to auscultation. Breath sounds equal bilaterally. No wheezes, rales, or rhonchi. GASTROINTESTINAL: Abdomen soft, non-tender, nondistended. No hepato-splenomegaly , or palpable masses. No guarding. Bowel sounds present. GENITOURINARY: Without palpable bladder distension. Delcid catheter in place. MUSCULOSKELETAL: Extremities without clubbing, cyanosis, or edema. No joint tenderness or effusion noted. No calf tenderness. No mottling or clubbing. R hand with well approximated incision , small amount of redness, swelling minimal serosag d/c on the dressing LYMPHATICS: No palpable cervical or supraclavicular adenopathy. NEUROLOGICAL: Awake and alert. Motor and sensory grossly within normal limits. Follows commands. Cognitively sharp. Moves all extremities. PSYCHIATRIC: No obvious anxiety/depression. no apparent hallucinations or other psychotic thought process. Laboratory Date/Time Source Procedure Growth Status 11/15/17 15:53 Blood Peripheral Aerobic Blood Culture - Preliminary NO GROWTH IN 3 DAYS Resulted 11/15/17 15:53 Blood Peripheral Anaerobic Blood Culture - Preliminary NO GROWTH IN 3 DAYS Resulted 11/16/17 21:40 Abscess Wrist Gram Stain - Final Resulted 11/16/17 21:40 Abscess Wrist Wound Culture - Preliminary NO GROWTH IN 24 HOURS. Resulted Result Diagram: 11/16/17 0345 11/16/17 0345 Imaging Last Impressions Hand X-Ray 11/15/17 0932 Signed Impressions: CONCLUSION: Negative examination Assessment and Plan Assessment and Plan sp Cat bite, right hand and wrist with infection, extensor tenosynovitis second and third compartments, right wrist. s/p I+D clx neg but pt presetnd with prior azbx use cont Unasyn follow clx further rec's per cul results Lorna Christina MD Nov 18, 2017 20:17
[2017-11-19] VITALS: BP 138/69; PULSE 87; RESP 16; TEMP 97.9; O2SAT 96
[2017-11-19] MEDS: AMPICILLIN/SULBAC 3 GM/NS 100 ML IV SCH ×8 (02:00→20:15)
[2017-11-19] MEDS: SODIUM CHLOR 0.9% 1000 ML INJ 1,000 ML IV SCH ×2 (03:37→14:31)
[2017-11-19 04:00] VITALS: BP 153/64; PULSE 84; RESP 16; TEMP 97.9; O2SAT 93
[2017-11-19] MEDS: MORPHINE SULFATE 4 MG/ML INJ IV PRN (05:42)
[2017-11-19 08:00] VITALS: BP 155/74; PULSE 83; RESP 20; TEMP 98.1; O2SAT 95
[2017-11-19] MEDS: FLUoxetine HCL 10 MG CAP PO SCH (08:08)
[2017-11-19] MEDS: DOCUSATE SODIUM 50 MG/SENNA 8.6 MG TAB PO SCH ×2 (08:08→20:16)
[2017-11-19] MEDS: SODIUM CHLORIDE 0.9% FLUSH 10 ML FLUSH IV FLUSH SCH ×2 (08:09→20:16)
--- NOTE | 2017-11-19 10:47 | HHI.PR ---
Subjective Remarks Follow-up cat bite/right hand cellulitis/failed outpatient therapy November 16, 2017-patient seen and examined, reports improvement of right hand swelling however continued to complain of pain. Currently afebrile. N.p.o. pending I&D from hand surgeon plan for today November 17, 2017-patient seen and examined, is status post incision and drainage of right hand. Report of some throbbing pain otherwise stable. Afebrile November 18, 2017-patient seen and examined, requesting that stable from his left eye be removed today. Reports improvement of right hand pain. November 19, 2017: With the right. No fever chills overnight. Able to move fingers any problems. Swelling improved Objective Vitals Vital Signs Date Time Temp Pulse Resp B/P (MAP) Pulse Ox O2 Delivery O2 Flow Rate FiO2 11/19/17 08:00 98.1 83 20 155/74 (101) 95 11/19/17 04:00 97.9 84 16 153/64 (93) 93 11/19/17 00:00 97.9 87 16 138/69 (92) 96 11/18/17 20:00 98.0 104 17 145/72 (96) 92 11/18/17 16:00 97.8 92 18 135/67 (89) 96 11/18/17 12:00 98.0 92 18 127/63 (84) 97 I/O 11/18/17 11/18/17 11/18/17 11/19/17 11/19/17 11/19/17 07:00 15:00 23:00 07:00 15:00 23:00 Intake Total 100 ml 579 ml 189 ml Output Total 800 ml 700 ml 550 ml Balance -700 ml -121 ml -361 ml Intake Oral 480 ml 90 ml IV Total 100 ml 99 ml 99 ml Output Urine Total 800 ml 700 ml 550 ml Result Diagram: 11/16/17 0345 11/16/17 0345 Imaging Last Impressions Hand X-Ray 11/15/17 037 Signed Impressions: CONCLUSION: Negative examination Objective Remarks GENERAL: 77 yo male, appears in NAD SKIN: Warm and dry.dressing to right arm; elevated to Pole CARDIOVASCULAR: Regular rate and rhythm without murmurs, gallops, or rubs. RESPIRATORY: Breath sounds equal bilaterally. No accessory muscle use. GASTROINTESTINAL: Abdomen soft, non-tender, nondistended. MUSCULOSKELETAL: No cyanosis, or edema. RUE in dressing and elevated to pole BACK: Nontender without obvious deformity. No CVA tenderness. Procedures Exploration, incision and drainage, extensor tenosynovectomy and release, second and third compartments, right wrist. A/P Problem List: (1) Bite from cat ICD Code: W55.01XA - Bitten by cat, initial encounter Status: Acute (2) Cellulitis of upper extremity ICD Code: L03.119 - Cellulitis of unspecified part of limb Status: Acute Assessment and Plan 77-year-old man with Cat bite/cellulitis CRP, ESR elevated Hand surgery consulted, appreciate assistance. s/p Exploration, incision and drainage, extensor tenosynovectomy and release, second and third compartments, right wrist 11/16/17 Continue with Unasyn pending culture report Consult infectious disease specialist Depression Continue home Prozac Remove jessica from left eyebrow DVT prophylaxis:Low risk for VTE Discussed with the patient, nurse Discharge when improved, cleared by surgery and infectious disease Problem Qualifiers (1) Bite from cat: Qualified Codes: W55.01XD - Bitten by cat, subsequent encounter (2) Cellulitis of upper extremity: Qualified Codes: L03.113 - Cellulitis of right upper limb Laura Michelle MD Nov 19, 2017 10:46
[2017-11-19 12:00] VITALS: BP 152/74; PULSE 94; RESP 20; TEMP 97.8; O2SAT 95
[2017-11-19] MEDS ORDERED: DEXAMETHASONE SOD PHOS 4 MG/ML VIAL IV ONE (12:00)
[2017-11-19] MEDS ORDERED: ROCURONIUM INJ 50 MG/5 ML SYRINGE IV PUSH ONE (12:00)
[2017-11-19] MEDS ORDERED: PROPOFOL 200 MG/20 ML AMP IV ONE (12:00)
[2017-11-19] MEDS ORDERED: VECURONIUM BROMIDE 20 MG VIAL IV ONE (12:00)
[2017-11-19] MEDS ORDERED: ONDANSETRON HCL 4 MG/2 ML VIAL IV ONE (12:00)
[2017-11-19] MEDS ORDERED: LIDOCAINE HCL 1% PF 5 ML SYRINGE OTHER ONE (12:00)
--- NOTE | 2017-11-19 15:11 | HHI.PR ---
Subjective Remarks complains of pain also complains of drooping of the thumb no fever no numbness Objective Vital Signs Date Time Temp Pulse Resp B/P (MAP) Pulse Ox O2 Delivery O2 Flow Rate FiO2 11/19/17 08:00 98.1 83 20 155/74 (101) 95 11/19/17 04:00 97.9 84 16 153/64 (93) 93 11/19/17 00:00 97.9 87 16 138/69 (92) 96 11/18/17 20:00 98.0 104 17 145/72 (96) 92 11/18/17 16:00 97.8 92 18 135/67 (89) 96 I/O 11/18/17 11/18/17 11/18/17 11/19/17 11/19/17 11/19/17 07:00 15:00 23:00 07:00 15:00 23:00 Intake Total 100 ml 579 ml 189 ml 100 ml Output Total 800 ml 700 ml 550 ml Balance -700 ml -121 ml -361 ml 100 ml Intake Oral 480 ml 90 ml IV Total 100 ml 99 ml 99 ml 100 ml Output Urine Total 800 ml 700 ml 550 ml examination of right upper extremity: drooping of the thumb noted swelling and redness noted over the distal forearm wrist range of motion is limited Result Diagram: 11/16/17 0345 11/16/17 0345 Assessment and Plan Assessment and Plan 77 year old male s/p exploration, extensor tenosynovectomy with release II and III compartments right wrist POD 3 Plan: packing pulled out. dry dressing applied patient has drooping of the thumb, likely the EPL is stretched out needs exploration, wash and possible repair of extensor tendon thumb will take him today for the procedure keep the patient npo. Ever Conner MD Nov 19, 2017 15:11
[2017-11-19 16:00] VITALS: BP 163/94; PULSE 108; RESP 20; TEMP 98.3
[2017-11-19] MEDS ORDERED: BACITRACIN TOP OINT 15 GM TUBE ONE (18:01)
[2017-11-19 20:00] VITALS: BP 166/80; PULSE 100; RESP 20; TEMP 98.9; O2SAT 86; O2SAT 97
[2017-11-19] MEDS ORDERED: BUPIVACAINE HCL PF 0.5% 30 ML VIAL ONE (21:14)
[2017-11-19] MEDS ORDERED: LIDOCAINE HCL 2% PF 10 ML VIAL ONE (21:15)
[2017-11-19] MEDS ORDERED: NEOMYCIN/POLYMYXIN 1 ML G.U. IRRIGANT ONE (21:16)
[2017-11-19] MEDS ORDERED: fentaNYL CITRATE 250 MCG/5 ML AMP ONE (21:41)
--- NOTE | 2017-11-19 23:16 | PD.OP ---
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
--- NOTE | 2017-11-19 23:25 | HHI.IDPN ---
Subjective Subjective Remarks doing better Antibiotics Unasyn Lines Allergies: Coded Allergies: No Known Allergies (Unverified , 11/15/17) Objective . Vital Signs Date Time Temp Pulse Resp B/P (MAP) Pulse Ox O2 Delivery O2 Flow Rate FiO2 11/19/17 20:00 98.9 100 20 166/80 (108) 97 11/19/17 19:15 97 Nasal Cannula 2.00 11/19/17 19:00 86 Room Air 11/19/17 16:00 98.3 108 20 163/94 (117) 11/19/17 12:00 97.8 94 20 152/74 (100) 95 11/19/17 08:00 98.1 83 20 155/74 (101) 95 11/19/17 04:00 97.9 84 16 153/64 (93) 93 11/19/17 00:00 97.9 87 16 138/69 (92) 96 11/19/17 11/19/17 11/20/17 15:00 23:00 07:00 Intake Total 200 ml 1480 ml Output Total 495 ml Balance 200 ml 985 ml Intake Oral 480 ml IV Total 200 ml Other 1000 ml Output Urine Total 475 ml Estimated Blood Loss 20 ml # Bowel Movements 1 Imaging Last Impressions Hand X-Ray 11/15/17 1732 Signed Impressions: CONCLUSION: Negative examination Physical Exam ONSTITUTIONAL/GENERAL: This is an adequately nourished patient, in no apparent distress. TUBES/LINES/DRAINS: SKIN: No jaundice, rashes, or lesions. Skin temperature appropriate. Not diaphoretic. MUSCULOSKELETAL: Extremities without clubbing, cyanosis, or edema. No joint tenderness or effusion noted. No calf tenderness. No mottling or clubbing. R hand with well approximated incision , small amount of redness, swelling minimal serosag d/c on the dressing NEUROLOGICAL: Awake and alert. Motor and sensory grossly within normal limits. Follows commands. Cognitively sharp. Moves all extremities. Assessment & Plan Remarks sp Cat bite, right hand and wrist with infection, extensor tenosynovitis second and third compartments, right wrist. s/p I+D growing PASTEURELLA MULTOCIDA cont Unasyn when improves and cleared by hand surgeon will d/c on Augmentin anticipate 2 weeks of tx from I+D Lorna Christina MD Nov 19, 2017 23:25
[2017-11-19] MEDS ORDERED: DO NOT ADM ANY ANTICOAGULANT DRUGS PRN (23:30)
[2017-11-19] MEDS ORDERED: *morphine SULFATE 4 MG/ML PERIprocedure ONLY ONE (23:46)
[2017-11-20] MEDS ORDERED: *morphine SULFATE 4 MG/ML PERIprocedure ONLY ONE (00:03)
[2017-11-20] MEDS: SODIUM CHLOR 0.9% 1000 ML INJ 1,000 ML IV SCH ×3 (00:11→20:46)
[2017-11-20 00:40] VITALS: BP 156/79; PULSE 88; RESP 20; TEMP 97.3; O2SAT 95
--- NOTE | 2017-11-20 01:09 | MP ---
cc: Ever Conner MD DATE OF OPERATION: 11/19/2017 PREOPERATIVE DIAGNOSIS: Cat bite, dorsal aspect right wrist, with extensor tenosynovitis second and third compartments and ruptured extensor pollicis longus tendon, right wrist. POSTOPERATIVE DIAGNOSIS: Cat bite to the right wrist with extensor tenosynovitis second and third compartments, with rupture of extensor pollicis longus tendon, zone 5, right wrist. PROCEDURE PERFORMED: Exploration, wash, debridement second and third extensor compartments and repair of extensor pollicis longus tendon, zone 5, right wrist. SURGEON: Ever Conner MD ANESTHESIA: General. ESTIMATED BLOOD LOSS: 10 mL TOURNIQUET TIME: 70 minutes at 250 mmHg. DISPOSITION: To PACU stable. INDICATIONS FOR PROCEDURE: The patient is a 77-year-old male with a history of cat bite to the dorsal aspect of the right hand and wrist, underwent exploration and was found to have extensor tenosynovitis involving the second and third compartments. He had extensor tenosynovectomy and release of second and third compartments. This was 3 days ago. The patient was found to have drooping of the right thumb today, with no active extension of the thumb IP joint. He was diagnosed clinically with rupture of the extensor pollicis longus tendon. He also had associated swelling and drainage. He was consented for exploration, wash, possible repair of extensor pollicis longus tendon, right wrist and hand. The patient was explained the risks and benefits of the procedure. PROCEDURE IN DETAIL: The patient was brought to the operating room under general anesthesia. The right upper extremity was thoroughly prepped and draped. The previously placed sutures were removed and the incision was then extended proximally towards the radial aspect, incorporating the previous incision, a total incision measuring about 6-7 cm. After limb elevation, tourniquet was inflated to 250 mmHg. Incision was then made over the proposed incision site. Skin flap was elevated. Intraoperative findings included extensive inflammatory tissue over the dorsal aspect of the retinaculum, extensive inflammation involving the second and third compartments, as well as a small amount of extensor tenosynovitis involving the fourth compartment. Complete rupture of the extensor pollicis longus tendon was noted in zone 5. Also, complete rupture of extensor carpi radialis brevis with loss of tendon substance was also noted. Excisional debridement of the extensor carpi radialis brevis tendon was carried out. Excisional debridement of inflammatory tissue was carried out, both in the subcutaneous tissue, as well as deep fascia. The debridement was also carried out around the extensor tendons of the fourth compartment. The bridging veins were cauterized with bipolar cautery and inflammatory phlegmon was excised from the region. The tendon edges were then debrided of the extensor pollicis longus tendon. The tendon edges were then brought together and was held in place by modified Tsuge repair with 4 strands crossing the repair site using 3-0 looped Supramid stitch. This was then reinforced with a 3-0 Supramid stitch in a continuous circumferential fashion. The thumb was put through range of motion. The tendon repair was holding well. A thorough wash was given prior to repair of the tendon using normal saline mixed with irrigant, about 2 liter of solution was used. The extensor retinaculum over the fourth compartment was still retained. Bleeding points were cauterized with bipolar cautery. Skin flaps were then approximated using 4-0 nylon in a horizontal mattress interrupted fashion, which was closed loosely. Packing of the wounds were carried out with multiple 1/4 inch iodoform packing material. Bulky hand dressing was applied, which was held in place by Sof-Rol and a volar splint was applied, keeping the wrist in extension and the splint extending to the IP joint of the thumb, keeping the IP joint of the thumb in extension. Tourniquet was deflated. Total tourniquet time was 70 minutes. Patient had good distal circulation after release of the tourniquet. The patient was recovered and sent to the recovery room in stable condition. The plan will be to continue with IV antibiotics. We will change the dressing and packing tomorrow. Ever Conner MD SE/BINH/luz , 11:21 PM , 12:18 AM HALI
[2017-11-20] MEDS: AMPICILLIN/SULBAC 3 GM/NS 100 ML IV SCH ×8 (02:05→20:45)
[2017-11-20 04:00] VITALS: BP 138/79; PULSE 87; RESP 20; TEMP 97.6; O2SAT 95
[2017-11-20 08:00] VITALS: BP 179/80; PULSE 92; RESP 20; TEMP 98.1; O2SAT 91
[2017-11-20] MEDS: DOCUSATE SODIUM 50 MG/SENNA 8.6 MG TAB PO SCH ×2 (09:00→20:45)
--- NOTE | 2017-11-20 09:13 | HHI.PR ---
Subjective Remarks Has throbbing pain in his hand. No fever or chills overnight. Neurovascular intact. Denies any shortness of breath or chest pain. However he feels very tired. Advised to CT in the chair or ambulate if he can. We will also ask physical therapy for evaluation. Objective Vitals Vital Signs Date Time Temp Pulse Resp B/P (MAP) Pulse Ox O2 Delivery O2 Flow Rate FiO2 11/20/17 04:00 97.6 87 20 138/79 (98) 95 11/20/17 00:40 Nasal Cannula 2.00 11/20/17 00:40 97.3 88 20 156/79 (104) 95 11/20/17 00:30 98.1 91 16 157/76 (103) 96 Nasal Cannula 2 11/20/17 00:15 88 16 157/76 (103) 97 Nasal Cannula 2 11/20/17 00:00 86 12 156/76 (102) 97 Nasal Cannula 2 11/19/17 23:45 91 12 162/77 (105) 96 Nasal Cannula 2 11/19/17 23:30 92 12 153/69 (97) 92 Nasal Cannula 2 11/19/17 23:15 98.5 87 16 167/76 (106) 92 Nasal Cannula 2 11/19/17 20:00 98.9 100 20 166/80 (108) 97 11/19/17 19:15 97 Nasal Cannula 2.00 11/19/17 19:00 86 Room Air 11/19/17 16:00 98.3 108 20 163/94 (117) 11/19/17 12:00 97.8 94 20 152/74 (100) 95 I/O 11/19/17 11/19/17 11/19/17 11/20/17 11/20/17 11/20/17 07:00 15:00 23:00 07:00 15:00 23:00 Intake Total 189 ml 200 ml 1580 ml 1000 ml Output Total 550 ml 495 ml Balance -361 ml 200 ml 1085 ml 1000 ml Intake Oral 90 ml 480 ml 0 ml IV Total 99 ml 200 ml 100 ml 1000 ml Other 1000 ml Output Urine Total 550 ml 475 ml Estimated Blood Loss 20 ml # Voids 1 # Bowel Movements 1 0 Result Diagram: 11/16/175 11/16/17344 Imaging Last Impressions Hand X-Ray 11/15/17 1732 Signed Impressions: CONCLUSION: Negative examination Objective Remarks GENERAL: 77 yo male, appears in NAD SKIN: Warm and dry.dressing to right arm; elevated to Pole CARDIOVASCULAR: Regular rate and rhythm without murmurs, gallops, or rubs. RESPIRATORY: Breath sounds equal bilaterally. No accessory muscle use. GASTROINTESTINAL: Abdomen soft, non-tender, nondistended. MUSCULOSKELETAL: No cyanosis, or edema. RUE in dressing and elevated to pole BACK: Nontender without obvious deformity. No CVA tenderness. Procedures s/p Exploration, incision and drainage, extensor tenosynovectomy and release, second and third compartments, right wrist 11/16/17 With extensor inflammation II, III and IV compartments complete tear of extensor pollicis longus tendon zone V tear of the Extensor carpi radialis brevis with loss of tendon substance s/p exploration, wash, debridement, repair of extensor pollicis longus right wrist by Dr Conner hand surgeon on 11/19/17 A/P Problem List: (1) Bite from cat ICD Code: W55.01XA - Bitten by cat, initial encounter Status: Acute (2) Cellulitis of upper extremity ICD Code: L03.119 - Cellulitis of unspecified part of limb Status: Acute Assessment and Plan 77-year-old man with Cat bite/cellulitis. Cat bite to the right wrist with extensor tenosynovitis second and third compartments, with rupture of extensor pollicis longus tendon , zone 5, right wrist. CRP, ESR elevated Hand surgery consulted, appreciate assistance. s/p Exploration, incision and drainage, extensor tenosynovectomy and release, second and third compartments, right wrist 11/16/17 With extensor inflammation II, III and IV compartments complete tear of extensor pollicis longus tendon zone V tear of the Extensor carpi radialis brevis with loss of tendon substance s/p exploration, wash, debridement, repair of extensor pollicis longus right wrist by Dr Conner hand surgeon on 11/19/17 Continue with Unasyn pending culture report Consult infectious disease specialist, appreciate recs Depression Continue home Prozac Remove jessica from left eyebrow DVT prophylaxis:Low risk for VTE Discussed with the patient, nurse Discharge when improved, cleared by surgery and infectious disease Discussed with Dr Alarcon hand specialist, poss. Discharged on Sunday if improves. Patient likely needs IV antibiotics at discharge. Also following Dr. Christina Problem Qualifiers (1) Bite from cat: Qualified Codes: W55.01XD - Bitten by cat, subsequent encounter (2) Cellulitis of upper extremity: Qualified Codes: L03.113 - Cellulitis of right upper limb Laura Michelle MD Nov 20, 2017 09:13
[2017-11-20] MEDS: FLUoxetine HCL 10 MG CAP PO SCH (09:31)
[2017-11-20] MEDS: SODIUM CHLORIDE 0.9% FLUSH 10 ML FLUSH IV FLUSH SCH ×2 (09:31→20:45)
[2017-11-20] MEDS: MORPHINE SULFATE 4 MG/ML INJ IV PRN ×3 (09:33→15:50)
[2017-11-20 12:00] VITALS: BP 176/79; PULSE 116; RESP 20; TEMP 98; O2SAT 92
[2017-11-20 16:00] VITALS: BP 129/60; PULSE 128; RESP 20; TEMP 99.7; O2SAT 88
--- NOTE | 2017-11-20 17:14 | HHI.PR ---
Subjective Remarks complains of pain complaint with limb elevation no numbness Objective Vital Signs Date Time Temp Pulse Resp B/P (MAP) Pulse Ox O2 Delivery O2 Flow Rate FiO2 11/20/17 11:30 Nasal Cannula 2.00 11/20/17 09:30 Nasal Cannula 2.00 11/20/17 04:00 97.6 87 20 138/79 (98) 95 11/20/17 00:40 Nasal Cannula 2.00 11/20/17 00:40 97.3 88 20 156/79 (104) 95 11/20/17 00:30 98.1 91 16 157/76 (103) 96 Nasal Cannula 2 11/20/17 00:15 88 16 157/76 (103) 97 Nasal Cannula 2 11/20/17 00:00 86 12 156/76 (102) 97 Nasal Cannula 2 11/19/17 23:45 91 12 162/77 (105) 96 Nasal Cannula 2 11/19/17 23:30 92 12 153/69 (97) 92 Nasal Cannula 2 11/19/17 23:15 98.5 87 16 167/76 (106) 92 Nasal Cannula 2 11/19/17 20:00 98.9 100 20 166/80 (108) 97 11/19/17 19:15 97 Nasal Cannula 2.00 11/19/17 19:00 86 Room Air I/O 11/19/17 11/19/17 11/19/17 11/20/17 11/20/17 11/20/17 07:00 15:00 23:00 07:00 15:00 23:00 Intake Total 189 ml 200 ml 1580 ml 1000 ml Output Total 550 ml 495 ml Balance -361 ml 200 ml 1085 ml 1000 ml Intake Oral 90 ml 480 ml 0 ml IV Total 99 ml 200 ml 100 ml 1000 ml Other 1000 ml Output Urine Total 550 ml 475 ml Estimated Blood Loss 20 ml # Voids 1 # Bowel Movements 1 0 right upper extremity: intact dressing. swelling noted packing in place minimal drainage Result Diagram: 11/16/1734411/16/17344 Assessment and Plan Assessment and Plan 77 year old male s/p exploration, extensor tenosynovectomy with release II and III compartments right wrist POD 4, exploration repair EPL right wrist POD1 Plan: packing pulled out1-2 cms dry dressing applied continue with splint and limb elevation continue with antibiotics based on ID recommendations hand surgery will follow Eathiraju,Ever MD Nov 20, 2017 17:14
[2017-11-20] MEDS ORDERED: ACETAMINOPHEN/HYDROcodone 325 MG/5 MG TAB PO PRN (17:45)
--- NOTE | 2017-11-20 18:32 | RADRPT ---
EXAM DATE: 11/20/2017 6:27 PM EDT AGE/SEX: 77 years / Male INDICATIONS: Shortness of breath. CLINICAL DATA: This is the patient's initial encounter. Patient reports that signs and symptoms have been present for 1 day and indicates a pain score of 0/10. MEDICAL/SURGICAL HISTORY: None. None. COMPARISON: No prior exams available for comparison. FINDINGS: Study is abnormal with patchy airspace disease in both the right and left lungs, worse in the left lo wer lobe. Cardiac silhouette is appropriate. Mild elevation right hemidiaphragm. No pneumothorax. No pleural effusion. CONCLUSION: Patchy airspace disease thought to be inflammatory. This would be an atypical appearance for congesti ve failure. Electronically signed by: Chad Colindres MD 11/20/2017 6:30 PM EDT
[2017-11-20] MEDS: ACETAMINOPHEN/HYDROcodone 325 MG/10 MG TAB PO PRN ×2 (18:40→22:53)
[2017-11-20] MEDS: ENOXAPARIN SODIUM 40 MG/0.4 ML SYRINGE SQ SCH (18:40)
[2017-11-20 20:00] VITALS: BP 113/59; PULSE 109; RESP 19; TEMP 97.6; O2SAT 90
[2017-11-21] VITALS (11 sets, daily range): BP systolic 117–151; BP diastolic 58–77; PULSE 85–101; RESP 16–19; TEMP 97.6–98.7; O2SAT 89–98
--- NOTE | 2017-11-21 01:11 | RADRPT ---
EXAM DATE: 11/21/2017 1:07 AM EDT AGE/SEX: 77 years / Male INDICATIONS: Congestion. CLINICAL DATA: This is the patient's subsequent encounter. Patient reports that signs and symptoms h ave been present for 2 days and indicates a pain score of 0/10. MEDICAL/SURGICAL HISTORY: None. None. COMPARISON: [facility] – [place] SING[place], 11/20/2017. . FINDINGS: Single AP view the chest. Patchy opacity in the lungs bilaterally predominantly involving the right u pper lung zone and left lower lung zone unchanged. Small left pleural effusion. No evidence of pneumo thorax. Cardiomediastinal silhouette within normal limits. CONCLUSION: Bilateral pulmonary opacity unchanged that may represent chronic lung disease, infection, or asymmetr ic pulmonary edema. Electronically signed by: Jonas Enriquez MD 11/21/2017 1:09 AM EDT
[2017-11-21] MEDS: AMPICILLIN/SULBAC 3 GM/NS 100 ML IV SCH ×8 (01:45→20:22)
[2017-11-21] MEDS ORDERED: PROCHLORPERAZINE INJ 10 MG/2 ML VIAL IV PUSH PRN (02:30)
[2017-11-21] MEDS ORDERED: RESP: ALBUTEROL 2.5 MG/IPRATROPIUM 0.5 MG NEB (PRN) INH (02:30)
[2017-11-21] MEDS: AZITHROMYCIN INJ 500 MG in SODIUM CHLOR 0.9% 250 ML INJ 250 ML IV SCH (02:53)
[2017-11-21] MEDS: ACETAMINOPHEN/HYDROcodone 325 MG/10 MG TAB PO PRN ×4 (02:55→22:36)
[2017-11-21 03:10] LABS: AUTOMATED NEUTROPHIL # 3.3 TH/MM3 (1.8-7.7); BASOPHIL % 0.7 % (0.0-2.0); EOSINOPHIL % 0.5 % (0.0-4.0); HEMATOCRIT 28.7 % (39.0-51.0); LYMPH % 15.5 % (9.0-44.0); LYMPHOCYTE # 0.8 TH/MM3 (1.0-4.8); MEAN CELL VOLUME 84.2 FL (80.0-100.0); MEAN CORPUSCULAR HEMOGLOBIN 29.5 PG (27.0-34.0); MEAN PLATELET VOLUME 8.1 FL (7.0-11.0); MONO % 17.8 % (0.0-8.0); MONOCYTE # 0.9 TH/MM3 (0-0.9); NEUT % 65.5 % (16.0-70.0); PLATELET COUNT 90 TH/MM3 (150-450); RED BLOOD COUNT 3.41 MIL/MM3 (4.50-5.90); RED CELL DISTRIBUTION WIDTH 16.6 % (11.6-17.2)
[2017-11-21 03:43] LABS: BICARBONATE 27.4 MEQ/L (21.0-32.0); CALCIUM 7.2 MG/DL (8.5-10.1); CREATININE 0.69 MG/DL (0.60-1.30); MAGNESIUM 1.3 MG/DL (1.5-2.5)
[2017-11-21] MEDS: RESP: ALBUTEROL 2.5 MG/IPRATROPIUM 0.5 MG NEB (SCH) INH ×4 (03:53→21:32)
[2017-11-21 03:55] LABS: TOTAL PROTEIN 5.6 GM/DL (6.4-8.2)
[2017-11-21] MEDS: CEFEPIME INJ 2,000 MG in SODIUM CHLORIDE 0.9% INJ 100 ML IV SCH ×3 (04:30→18:49)
[2017-11-21] MEDS ORDERED: POTASSIUM CHLORIDE 20 MEQ CONTROLLED RELEASE TAB PO ONE (05:00)
[2017-11-21] MEDS ORDERED: MAGNESIUM OXIDE 400 MG TAB PO ONE (05:00)
[2017-11-21] MEDS: SODIUM CHLOR 0.9% 1000 ML INJ 1,000 ML IV SCH (07:22)
[2017-11-21] MEDS: SODIUM CHLORIDE 0.9% FLUSH 10 ML FLUSH IV FLUSH SCH ×2 (08:46→20:21)
[2017-11-21] MEDS: FLUoxetine HCL 10 MG CAP PO SCH (08:47)
[2017-11-21] MEDS: DOCUSATE SODIUM 50 MG/SENNA 8.6 MG TAB PO SCH ×2 (08:47→20:23)
--- NOTE | 2017-11-21 12:47 | RADRPT ---
EXAM DATE: 11/21/2017 10:23 AM EDT AGE/SEX: 77 years / Male INDICATIONS: Bilateral leg swelling. CLINICAL DATA: This is the patient's initial encounter. Patient reports that signs and symptoms have been present for 3 days and indicates a pain score of 1/10. MEDICAL/SURGICAL HISTORY: Hypertension. Arthritis. Depression. Anxiety. Head trauma. . Bilater al cataract surgery. Cardiac ablation. Cyst removed from spine. Left ankle plate. COMPARISON: No prior exams available for comparison. TECHNIQUE: Venous ultrasound of both lower extremities was performed from the inguinal ligament to t he proximal calf. Real-time, color Doppler and spectral tracing, compression and augmentation techni ques were used. FINDINGS: Right Leg: There is normal compressibility of the deep venous system from the inguinal region to the proximal calf. No echogenic clot is seen in the lumen of the common femoral, femoral, popliteal, an d posterior tibial veins. There is a normal response of the venous system to proximal and distal aug mentation and respiration. Left Leg: There is normal compressibility of the deep venous system from the inguinal region to the proximal calf. No echogenic clot is seen in the lumen of the common femoral, femoral, popliteal, and posterior tibial veins. There is a normal response of the venous system to proximal and distal augm entation and respiration. CONCLUSION: 1. No DVT identified. Electronically signed by: Michael Colindres MD 11/21/2017 12:46 PM EDT
--- NOTE | 2017-11-21 14:19 | HHI.PR ---
Subjective Remarks Patient is requiring more oxygen by nasal cannula. However she says he is not short of breath and he is not coughing. Denies any chest pain. Chest x-ray ordered and shows pneumonia. Patient is already on antibiotics. Physical therapy also is following. The patient is in the chair at this time. He says pain is better controlled he is taking p.o. medication Objective Vitals Vital Signs Date Time Temp Pulse Resp B/P (MAP) Pulse Ox O2 Delivery O2 Flow Rate FiO2 11/21/17 12:00 98.7 88 18 131/60 (83) 96 11/21/17 11:14 93 Nasal Cannula 4.00 11/21/17 09:19 4.00 11/21/17 08:00 97.9 85 18 145/65 (91) 90 11/21/17 04:00 97.6 86 19 117/59 (78) 95 11/21/17 03:54 98 Nasal Cannula 4.00 11/21/17 01:41 93 Nasal Cannula 3.00 11/21/17 01:41 18 93 11/21/17 01:24 89 Nasal Cannula 3.00 11/21/17 01:13 91 11/21/17 00:00 90 Nasal Cannula 3.00 11/21/17 00:00 98.7 96 19 123/58 (79) 93 11/20/17 20:00 97.6 109 19 113/59 (77) 90 11/20/17 20:00 Nasal Cannula 2.00 11/20/17 16:00 99.7 128 20 129/60 (83) 88 I/O 11/20/17 11/20/17 11/20/17 11/21/17 11/21/17 11/21/17 07:00 15:00 23:00 07:00 15:00 23:00 Intake Total 1000 ml 1580 ml 470 ml Output Total 200 ml 3 ml Balance 1000 ml 1380 ml 467 ml Intake Oral 0 ml 480 ml 120 ml IV Total 1000 ml 1100 ml 350 ml Output Urine Total 200 ml 3 ml # Voids 1 # Bowel Movements 0 1 0 Result Diagram: 11/21/17 0259 11/21/17 0259 Imaging Last Impressions Lower Extremity Ultrasound 11/21/17 0000 Signed Impressions: CONCLUSION: 1. No DVT identified. Chest X-Ray 11/21/17 0000 Signed Impressions: CONCLUSION: Bilateral pulmonary opacity unchanged that may represent chronic lung disease, infection, or asymmetric pulmonary edema. Hand X-Ray 11/15/17 2512 Signed Impressions: CONCLUSION: Negative examination Objective Remarks GENERAL: 77 yo male, appears in NAD SKIN: Warm and dry.dressing to right arm; elevated to Pole CARDIOVASCULAR: Regular rate and rhythm without murmurs, gallops, or rubs. RESPIRATORY: Breath sounds equal bilaterally. No accessory muscle use. GASTROINTESTINAL: Abdomen soft, non-tender, nondistended. MUSCULOSKELETAL: No cyanosis, or edema. RUE in dressing and elevated to pole BACK: Nontender without obvious deformity. No CVA tenderness. Procedures s/p Exploration, incision and drainage, extensor tenosynovectomy and release, second and third compartments, right wrist 11/16/17 With extensor inflammation II, III and IV compartments complete tear of extensor pollicis longus tendon zone V tear of the Extensor carpi radialis brevis with loss of tendon substance s/p exploration, wash, debridement, repair of extensor pollicis longus right wrist by Dr Conner hand surgeon on 11/19/17 A/P Problem List: (1) Bite from cat ICD Code: W55.01XA - Bitten by cat, initial encounter Status: Acute (2) Cellulitis of upper extremity ICD Code: L03.119 - Cellulitis of unspecified part of limb Status: Acute Assessment and Plan 77-year-old man with Cat bite/cellulitis. Cat bite to the right wrist with extensor tenosynovitis second and third compartments, with rupture of extensor pollicis longus tendon , zone 5, right wrist. CRP, ESR elevated Hand surgery consulted, appreciate assistance. s/p Exploration, incision and drainage, extensor tenosynovectomy and release, second and third compartments, right wrist 11/16/17 With extensor inflammation II, III and IV compartments complete tear of extensor pollicis longus tendon zone V tear of the Extensor carpi radialis brevis with loss of tendon substance s/p exploration, wash, debridement, repair of extensor pollicis longus right wrist by Dr Conner hand surgeon on 11/19/17 Continue with Unasyn pending culture report Consult infectious disease specialist, appreciate recs Acute respiratory failure. Hypoxia . The patient is requiring more O2. Hypoxia. CXR reviewed with bilateral pneumonia on CXR Tachycardic but no leukocytosis or fevers. Add cefepime and azithromycin IV abx Started IS Add acapella Will also do Doppler US to r/o DVT. US Reviewed no DVT. Will consider CT angio to r.o PE if doesn't improve. D Dimer will be elevated. Depression Continue home Prozac Remove jessica from left eyebrow DVT prophylaxis:Low risk for VTE Discussed with the patient, nurse Discharge when improved, cleared by surgery and infectious disease Discussed with Dr Alarcon hand specialist, poss. Discharged on Sunday if improves. Patient likely needs IV antibiotics at discharge. Also following Dr. Christina ID. Problem Qualifiers (1) Bite from cat: Qualified Codes: W55.01XD - Bitten by cat, subsequent encounter (2) Cellulitis of upper extremity: Qualified Codes: L03.113 - Cellulitis of right upper limb Laura Michelle MD Nov 21, 2017 14:19
[2017-11-21] MEDS ORDERED: IOHEXOL 350 MG/ML 10 ML VIAL (for RAD DIAG) IVCONTRAST ONE (17:23)
--- NOTE | 2017-11-21 17:36 | RADRPT ---
EXAM DATE: 11/21/2017 5:13 PM EDT AGE/SEX: 77 years / Male INDICATIONS: Shortness of breath. CLINICAL DATA: This is the patient's initial encounter. Patient reports that signs and symptoms have been present for 1 day and indicates a pain score of 0/10. MEDICAL/SURGICAL HISTORY: Cardiovascular disease. Hypertension. None. RADIATION DOSE: 16.24 CTDI (mGy) COMPARISON: No prior exams available for comparison. TECHNIQUE: Volumetric scanning was performed using a multi-row detector CT scanner during bolus infu valerio of 75 ml Omnipaque 350 (iohexol) nonionic water-soluble contrast as a single exam dose. The ursula a was post processed with a variety of visualization algorithms including full volume maximum intensi ty projection and sliding thin slab reformation. Using automated exposure control and adjustment of the mA and/or kV according to patient size, radiation dose was kept as low as reasonably achievable t o obtain optimal diagnostic quality images. FINDINGS: Marked emphysematous changes are seen in both lungs with bulla evident. Coarse interstitial changes a re in the bases. Moderate bilateral pleural effusions are noted. There is no evidence for central pulmonary emboli. There is no mediastinal adenopathy. Upper abdominal contents are grossly unremarkable. There is no pericardial effusion. CONCLUSION: 1. Negative for central pulmonary emboli 2. Marked emphysematous changes and interstitial basilar infiltrate. 3. Moderate bilateral pleural effusions. Electronically signed by: Chad Colindres MD 11/21/2017 5:34 PM EDT
[2017-11-21] MEDS ORDERED: POTASSIUM CHLORIDE 10 MEQ CONTROLLED RELEASE TAB PO ONE (18:15)
[2017-11-21] MEDS ORDERED: FUROSEMIDE 20 MG/2 ML VIAL IV PUSH ONE (18:15)
[2017-11-21] MEDS: ENOXAPARIN SODIUM 40 MG/0.4 ML SYRINGE SQ SCH (18:49)
[2017-11-21] MEDS: ENOXAPARIN SODIUM 60 MG/0.6 ML SYRINGE SQ SCH (20:22)
[2017-11-21] MEDS: guaiFENesin E.R. 600 MG TAB PO SCH (20:22)
[2017-11-22] VITALS (8 sets, daily range): BP systolic 120–178; BP diastolic 68–89; PULSE 93–108; RESP 16–20; TEMP 97.8–98.8; O2SAT 90–99
[2017-11-22] MEDS: CEFEPIME INJ 2,000 MG in SODIUM CHLORIDE 0.9% INJ 100 ML IV SCH ×3 (01:38→17:46)
[2017-11-22] MEDS: AMPICILLIN/SULBAC 3 GM/NS 100 ML IV SCH ×8 (01:38→21:02)
[2017-11-22] MEDS: AZITHROMYCIN INJ 500 MG in SODIUM CHLOR 0.9% 250 ML INJ 250 ML IV SCH (01:39)
[2017-11-22] MEDS: RESP: ALBUTEROL 2.5 MG/IPRATROPIUM 0.5 MG NEB (SCH) INH ×4 (03:03→20:02)
[2017-11-22 04:22] LABS: AUTOMATED NEUTROPHIL # 2.8 TH/MM3 (1.8-7.7); BASOPHIL % 0.4 % (0.0-2.0); EOSINOPHIL % 0.4 % (0.0-4.0); HEMATOCRIT 28.7 % (39.0-51.0); LYMPH % 16.1 % (9.0-44.0); LYMPHOCYTE # 0.6 TH/MM3 (1.0-4.8); MEAN CELL VOLUME 83.6 FL (80.0-100.0); MEAN CORPUSCULAR HGB CONC 34.7 % (32.0-36.0); MEAN PLATELET VOLUME 8.2 FL (7.0-11.0); MONO % 13.4 % (0.0-8.0); MONOCYTE # 0.5 TH/MM3 (0-0.9); NEUT % 69.7 % (16.0-70.0); PLATELET COUNT 87 TH/MM3 (150-450); RED BLOOD COUNT 3.43 MIL/MM3 (4.50-5.90); RED CELL DISTRIBUTION WIDTH 16.9 % (11.6-17.2)
[2017-11-22 04:37] LABS: BICARBONATE 27.8 MEQ/L (21.0-32.0); CALCIUM 7.5 MG/DL (8.5-10.1); CREATININE 0.76 MG/DL (0.60-1.30); MAGNESIUM 1.2 MG/DL (1.5-2.5)
[2017-11-22] MEDS: FLUoxetine HCL 10 MG CAP PO SCH (08:42)
[2017-11-22] MEDS: guaiFENesin E.R. 600 MG TAB PO SCH ×2 (08:42→21:02)
[2017-11-22] MEDS: DOCUSATE SODIUM 50 MG/SENNA 8.6 MG TAB PO SCH ×2 (08:43→21:02)
[2017-11-22] MEDS: SODIUM CHLORIDE 0.9% FLUSH 10 ML FLUSH IV FLUSH SCH ×2 (08:43→21:03)
--- NOTE | 2017-11-22 12:43 | HHI.PR ---
Subjective Remarks Patient is still with shortness of breath especially with ambulation. He also feels unsteady s in his feet when he ambulates to the bathroom. Denies any chest pain. Not much cough. Pain in his hand is controlled by medications. Received Lasix and has a good urine output. Not much is swelling of his legs. No fever or chills. Objective Vitals Vital Signs Date Time Temp Pulse Resp B/P (MAP) Pulse Ox O2 Delivery O2 Flow Rate FiO2 11/22/17 09:00 98.1 104 18 159/81 (107) 99 11/22/17 08:00 99 Nasal Cannula 5.00 11/22/17 04:00 98.8 97 16 145/76 (99) 93 11/22/17 00:00 98.2 101 18 120/68 (85) 91 11/21/17 21:35 93 Nasal Cannula 6.00 11/21/17 20:00 98.4 101 16 151/77 (101) 95 11/21/17 19:15 93 Nasal Cannula 6.00 11/21/17 18:00 94 Nasal Cannula 6.00 11/21/17 16:00 98.1 92 18 142/64 (90) 96 I/O 11/21/17 11/21/17 11/21/17 11/22/17 11/22/17 11/22/17 07:00 15:00 23:00 07:00 15:00 23:00 Intake Total 470 ml 200 ml Output Total 3 ml 650 ml Balance 467 ml -450 ml Intake Oral 120 ml 200 ml IV Total 350 ml Output Urine Total 3 ml 650 ml # Bowel Movements 0 0 Result Diagram: 11/22/17 0346 11/22/17 0346 Imaging Last Impressions Lower Extremity Ultrasound 11/21/17 0000 Signed Impressions: CONCLUSION: 1. No DVT identified. Chest X-Ray 11/21/17 0000 Signed Impressions: CONCLUSION: Bilateral pulmonary opacity unchanged that may represent chronic lung disease, infection, or asymmetric pulmonary edema. CT Angiography 11/21/17 0000 Signed Impressions: CONCLUSION: 1. Negative for central pulmonary emboli 2. Marked emphysematous changes and interstitial basilar infiltrate. 3. Moderate bilateral pleural effusions. Hand X-Ray 11/15/17 0872 Signed Impressions: CONCLUSION: Negative examination Objective Remarks GENERAL: 77 yo male, appears in NAD SKIN: Warm and dry.dressing to right arm; elevated to Pole CARDIOVASCULAR: Regular rate and rhythm without murmurs, gallops, or rubs. RESPIRATORY: Breath sounds equal bilaterally. No accessory muscle use. GASTROINTESTINAL: Abdomen soft, non-tender, nondistended. MUSCULOSKELETAL: No cyanosis, or edema. RUE in dressing and elevated to pole BACK: Nontender without obvious deformity. No CVA tenderness. Procedures s/p Exploration, incision and drainage, extensor tenosynovectomy and release, second and third compartments, right wrist 11/16/17 With extensor inflammation II, III and IV compartments complete tear of extensor pollicis longus tendon zone V tear of the Extensor carpi radialis brevis with loss of tendon substance s/p exploration, wash, debridement, repair of extensor pollicis longus right wrist by Dr Conner hand surgeon on 11/19/17 A/P Problem List: (1) Bite from cat ICD Code: W55.01XA - Bitten by cat, initial encounter Status: Acute (2) Cellulitis of upper extremity ICD Code: L03.119 - Cellulitis of unspecified part of limb Status: Acute Assessment and Plan 77-year-old man with Cat bite/cellulitis. Cat bite to the right wrist with extensor tenosynovitis second and third compartments, with rupture of extensor pollicis longus tendon , zone 5, right wrist. CRP, ESR elevated Hand surgery consulted, appreciate assistance. s/p Exploration, incision and drainage, extensor tenosynovectomy and release, second and third compartments, right wrist 11/16/17 With extensor inflammation II, III and IV compartments complete tear of extensor pollicis longus tendon zone V tear of the Extensor carpi radialis brevis with loss of tendon substance s/p exploration, wash, debridement, repair of extensor pollicis longus right wrist by Dr Conner hand surgeon on 11/19/17 Continue with Unasyn pending culture report Consult infectious disease specialist, appreciate recs Acute respiratory failure. Hypoxia . The patient is requiring more O2. Hypoxia. CXR reviewed with bilateral pneumonia and bilateral pleural effusions on CXR . IVF stopped. Tachycardic but no leukocytosis or fevers. Add cefepime and azithromycin IV abx Started IS Add acapella Doppler US no DVT. CT angio no PE. Infiltrates and bilateral effusions. BNP is also elevated. 2D echo 2D echo ordered. Patient received Lasix. Has a good urine output. Monitor oxygen saturation. Continue oxygen by nasal cannula to keep oxygen saturation more than 92% Monitor urine OP and kidney function. Depression Continue home Prozac Remove jessica from left eyebrow DVT prophylaxis:Low risk for VTE Discussed with the patient, nurse Discharge when improved, cleared by surgery and infectious disease Discussed with Dr Alarcon hand specialist, poss. Discharged on Sunday if improves. Patient likely needs IV antibiotics at discharge. Also following Dr. Christina ID. Patient is however also with hypoxia Problem Qualifiers (1) Bite from cat: Qualified Codes: W55.01XD - Bitten by cat, subsequent encounter (2) Cellulitis of upper extremity: Qualified Codes: L03.113 - Cellulitis of right upper limb Laura Michelle MD Nov 22, 2017 12:43
[2017-11-22] MEDS ORDERED: POTASSIUM CHLORIDE 10 MEQ CONTROLLED RELEASE TAB PO ONE (13:30)
[2017-11-22] MEDS ORDERED: MAGNESIUM OXIDE 400 MG TAB PO ONE (13:30)
[2017-11-22] MEDS ORDERED: FUROSEMIDE 40 MG TAB PO ONE (13:30)
--- NOTE | 2017-11-22 15:26 | HHI.IDPN ---
Subjective Subjective Remarks c/o SOB no fever no cough unable to expectorate apparently infiltrate present on CXR, cefepime, azithromuycin were added R hand better Antibiotics Unasyn Lines Allergies: Coded Allergies: No Known Allergies (Unverified , 11/15/17) Objective . Vital Signs Date Time Temp Pulse Resp B/P (MAP) Pulse Ox O2 Delivery O2 Flow Rate FiO2 11/22/17 12:00 97 Nasal Cannula 3.00 11/22/17 12:00 97.8 93 18 141/73 (95) 95 11/22/17 09:00 98.1 104 18 159/81 (107) 99 11/22/17 08:00 99 Nasal Cannula 5.00 11/22/17 04:00 98.8 97 16 145/76 (99) 93 11/22/17 00:00 98.2 101 18 120/68 (85) 91 11/21/17 21:35 93 Nasal Cannula 6.00 11/21/17 20:00 98.4 101 16 151/77 (101) 95 11/21/17 19:15 93 Nasal Cannula 6.00 11/21/17 18:00 94 Nasal Cannula 6.00 11/21/17 16:00 98.1 92 18 142/64 (90) 96 . Laboratory Tests Test 11/21/17 02:59 11/22/17 03:46 White Blood Count 5.0 TH/MM3 4.0 TH/MM3 Red Blood Count 3.41 MIL/MM3 3.43 MIL/MM3 Hemoglobin 10.0 GM/DL 10.0 GM/DL Hematocrit 28.7 % 28.7 % Mean Corpuscular Volume 84.2 FL 83.6 FL Mean Corpuscular Hemoglobin 29.5 PG 29.0 PG Mean Corpuscular Hemoglobin Concent 35.0 % 34.7 % Red Cell Distribution Width 16.6 % 16.9 % Platelet Count 90 TH/MM3 87 TH/MM3 Mean Platelet Volume 8.1 FL 8.2 FL Neutrophils (%) (Auto) 65.5 % 69.7 % Lymphocytes (%) (Auto) 15.5 % 16.1 % Monocytes (%) (Auto) 17.8 % 13.4 % Eosinophils (%) (Auto) 0.5 % 0.4 % Basophils (%) (Auto) 0.7 % 0.4 % Neutrophils # (Auto) 3.3 TH/MM3 2.8 TH/MM3 Lymphocytes # (Auto) 0.8 TH/MM3 0.6 TH/MM3 Monocytes # (Auto) 0.9 TH/MM3 0.5 TH/MM3 Eosinophils # (Auto) 0.0 TH/MM3 0.0 TH/MM3 Basophils # (Auto) 0.0 TH/MM3 0.0 TH/MM3 CBC Comment AUTO DIFF AUTO DIFF Differential Comment AUTO DIFF CONFIRMED AUTO DIFF CONFIRMED Platelet Estimate LOW LOW Platelet Morphology Comment NORMAL NORMAL Laboratory Tests Test 11/21/17 02:59 11/22/17 03:46 Blood Urea Nitrogen 6 MG/DL 8 MG/DL Creatinine 0.69 MG/DL 0.76 MG/DL Random Glucose 115 MG/DL 114 MG/DL Total Protein 5.6 GM/DL Calcium Level 7.2 MG/DL 7.5 MG/DL Magnesium Level 1.3 MG/DL 1.2 MG/DL Sodium Level 142 MEQ/L 142 MEQ/L Potassium Level 3.3 MEQ/L 3.2 MEQ/L Chloride Level 106 MEQ/L 105 MEQ/L Carbon Dioxide Level 27.4 MEQ/L 27.8 MEQ/L Anion Gap 9 MEQ/L 9 MEQ/L Estimat Glomerular Filtration Rate 111 ML/MIN 99 ML/MIN Protein Corrected Calcium 8.0 MG/DL B-Type Natriuretic Peptide 601 PG/ML Imaging Last Impressions Lower Extremity Ultrasound 11/21/17 0000 Signed Impressions: CONCLUSION: 1. No DVT identified. Chest X-Ray 11/21/17 0000 Signed Impressions: CONCLUSION: Bilateral pulmonary opacity unchanged that may represent chronic lung disease, infection, or asymmetric pulmonary edema. CT Angiography 11/21/17 0000 Signed Impressions: CONCLUSION: 1. Negative for central pulmonary emboli 2. Marked emphysematous changes and interstitial basilar infiltrate. 3. Moderate bilateral pleural effusions. Hand X-Ray 11/15/17 1732 Signed Impressions: CONCLUSION: Negative examination Physical Exam CONSTITUTIONAL/GENERAL: This is an adequately nourished patient, in no apparent distress. TUBES/LINES/DRAINS: SKIN: No jaundice, rashes, or lesions. Skin temperature appropriate. Not diaphoretic. HEAD: Atraumatic. Normocephalic. EYES: Pupils equal and round and reactive. Extraocular motions intact. No scleral icterus. No injection or drainage. Fundi not examined. ENT: Hearing grossly normal. Nose without bleeding or purulent drainage. Throat without visible erythema, exudates, masses, or lesions. NECK: Trachea midline. Supple, nontender. No palpable thyroid enlargement or nodularity. CARDIOVASCULAR: Regular rate and rhythm without murmurs, gallops, or rubs. No JVD. Peripheral pulses symmetric. RESPIRATORY/CHEST: Symmetric, unlabored respirations. Clear to auscultation. Breath sounds equal bilaterally. No wheezes, rales, or rhonchi. GASTROINTESTINAL: Abdomen soft, non-tender, nondistended. No hepato-splenomegaly , or palpable masses. No guarding. Bowel sounds present. GENITOURINARY: Without palpable bladder distension. Delcid catheter in place. MUSCULOSKELETAL: Extremities without clubbing, cyanosis, or edema. No joint tenderness or effusion noted. No calf tenderness. No mottling or clubbing. R hand with well approximated incision , small amount of redness, swelling minimal serosag d/c on the dressing LYMPHATICS: No palpable cervical or supraclavicular adenopathy. NEUROLOGICAL: Awake and alert. Motor and sensory grossly within normal limits. Follows commands. Cognitively sharp. Moves all extremities. PSYCHIATRIC: No obvious anxiety/depression. no apparent hallucinations or other psychotic thought process. Laboratory Date/Time Source Procedure Growth Status 11/15/17 15:53 Blood Peripheral Aerobic Blood Culture - Preliminary NO GROWTH IN 3 DAYS Resulted 11/15/17 15:53 Blood Peripheral Anaerobic Blood Culture - Preliminary NO GROWTH IN 3 DAYS Resulted 11/16/17 21:40 Abscess Wrist Gram Stain - Final Resulted 11/16/17 21:40 Abscess Wrist Wound Culture - Preliminary NO GROWTH IN 24 HOURS. Resulted Result Diagram: 11/16/17 0345 11/16/17 0345 Imaging Last Impressions Hand X-Ray 11/15/17 4682 Signed Impressions: CONCLUSION: Negative examination Assessment and Plan Assessment and Plan sp Cat bite, right hand and wrist with infection, extensor tenosynovitis second and third compartments, right wrist. s/p I+D clx neg but pt presetnd with prior azbx use cont Unasyn follow clx further rec's per cul results Assessment & Plan Remarks sp Cat bite, right hand and wrist with infection, extensor tenosynovitis second and third compartments, right wrist. s/p I+D growing PASTEURELLA MULTOCIDA Pulm infiltrates favouring CHF Doubt PNA ( no fever, no leukocytosis, o expectoration, BNP 600+) cont Unasyn when improves and cleared by hand surgeon will d/c on Augmentin anticipate 2 weeks of tx from I+D 2 D echo dc cefepime, jordon barillas spouse @ b/s Lorna Christina MD Nov 22, 2017 15:26
[2017-11-22] MEDS: ENOXAPARIN SODIUM 60 MG/0.6 ML SYRINGE SQ SCH (21:02)
[2017-11-23] VITALS (8 sets, daily range): BP systolic 140–168; BP diastolic 68–83; PULSE 73–95; RESP 17–20; TEMP 97.3–99.1; O2SAT 92–99
[2017-11-23] MEDS: RESP: ALBUTEROL 2.5 MG/IPRATROPIUM 0.5 MG NEB (SCH) INH ×4 (02:38→21:00)
[2017-11-23] MEDS: AMPICILLIN/SULBAC 3 GM/NS 100 ML IV SCH ×8 (02:55→20:12)
[2017-11-23] MEDS: AZITHROMYCIN INJ 500 MG in SODIUM CHLOR 0.9% 250 ML INJ 250 ML IV SCH (02:55)
[2017-11-23] MEDS: CEFEPIME INJ 2,000 MG in SODIUM CHLORIDE 0.9% INJ 100 ML IV SCH ×3 (02:55→18:25)
[2017-11-23] MEDS: DOCUSATE SODIUM 50 MG/SENNA 8.6 MG TAB PO SCH ×2 (08:06→20:13)
[2017-11-23] MEDS: POTASSIUM CHLORIDE 10 MEQ CONTROLLED RELEASE TAB PO SCH (08:06)
[2017-11-23] MEDS: guaiFENesin E.R. 600 MG TAB PO SCH ×2 (08:06→20:13)
[2017-11-23] MEDS: FLUoxetine HCL 10 MG CAP PO SCH (08:06)
[2017-11-23] MEDS: MAGNESIUM OXIDE 400 MG TAB PO SCH (08:06)
[2017-11-23] MEDS: SODIUM CHLORIDE 0.9% FLUSH 10 ML FLUSH IV FLUSH SCH ×2 (08:09→20:13)
--- NOTE | 2017-11-23 08:16 | HHI.PR ---
Subjective Remarks Feels a little bit improved today. Less shortness of breath able to ambulate. Eating better. No fever or chills overnight. She is not coughing. No nausea no vomiting no diarrhea or constipation. Objective Vitals Vital Signs Date Time Temp Pulse Resp B/P (MAP) Pulse Ox O2 Delivery O2 Flow Rate FiO2 11/23/17 04:00 97.8 95 20 146/78 (100) 92 11/23/17 00:00 97.9 73 20 168/83 (111) 93 11/22/17 20:02 90 Nasal Cannula 6.00 11/22/17 20:00 98.4 108 20 160/87 (111) 92 11/22/17 19:15 92 Nasal Cannula 6.00 11/22/17 18:06 94 Nasal Cannula 4.00 11/22/17 16:00 94 4.00 11/22/17 16:00 97.9 100 18 178/89 (118) 94 11/22/17 15:56 93 Nasal Cannula 6.00 11/22/17 12:00 97 Nasal Cannula 3.00 11/22/17 12:00 97.8 93 18 141/73 (95) 95 11/22/17 09:00 98.1 104 18 159/81 (107) 99 I/O 11/22/17 11/22/17 11/22/17 11/23/17 11/23/17 11/23/17 07:00 15:00 23:00 07:00 15:00 23:00 Intake Total 200 ml 1000 ml 360 ml Output Total 650 ml 650 ml 2650 ml Balance -450 ml 350 ml -2290 ml Intake Oral 200 ml 1000 ml 360 ml Output Urine Total 650 ml 650 ml 2650 ml # Bowel Movements 0 0 Result Diagram: 11/22/17 0346 11/22/17 0346 Objective Remarks GENERAL: 77 yo male, appears in NAD SKIN: Warm and dry.dressing to right arm; elevated to Pole CARDIOVASCULAR: Regular rate and rhythm without murmurs, gallops, or rubs. RESPIRATORY: Breath sounds equal bilaterally. No accessory muscle use. GASTROINTESTINAL: Abdomen soft, non-tender, nondistended. MUSCULOSKELETAL: No cyanosis, or edema. RUE in dressing and elevated to pole BACK: Nontender without obvious deformity. No CVA tenderness. Procedures s/p Exploration, incision and drainage, extensor tenosynovectomy and release, second and third compartments, right wrist 11/16/17 With extensor inflammation II, III and IV compartments complete tear of extensor pollicis longus tendon zone V tear of the Extensor carpi radialis brevis with loss of tendon substance s/p exploration, wash, debridement, repair of extensor pollicis longus right wrist by Dr Conner hand surgeon on 11/19/17 A/P Problem List: (1) Bite from cat ICD Code: W55.01XA - Bitten by cat, initial encounter Status: Acute (2) Cellulitis of upper extremity ICD Code: L03.119 - Cellulitis of unspecified part of limb Status: Acute Assessment and Plan 77-year-old man with Cat bite/cellulitis. Cat bite to the right wrist with extensor tenosynovitis second and third compartments, with rupture of extensor pollicis longus tendon , zone 5, right wrist. CRP, ESR elevated Hand surgery consulted, appreciate assistance. s/p Exploration, incision and drainage, extensor tenosynovectomy and release, second and third compartments, right wrist 11/16/17 With extensor inflammation II, III and IV compartments complete tear of extensor pollicis longus tendon zone V tear of the Extensor carpi radialis brevis with loss of tendon substance s/p exploration, wash, debridement, repair of extensor pollicis longus right wrist by Dr Conner hand surgeon on 11/19/17 Continue with Unasyn pending culture report Consult infectious disease specialist, appreciate recs Acute respiratory failure. Hypoxia . The patient is requiring more O2. Hypoxia. CXR reviewed with bilateral pneumonia and bilateral pleural effusions on CXR . IVF stopped. Tachycardic but no leukocytosis or fevers. Add cefepime and azithromycin IV abx Started IS Add acapella Doppler US no DVT. CT angio no PE. Infiltrates and bilateral effusions. BNP is also elevated. 2D echo 2D echo ordered. Patient received Lasix. Has a good urine output. Monitor oxygen saturation. Continue oxygen by nasal cannula to keep oxygen saturation more than 92% Monitor urine OP and kidney function. Depression Continue home Prozac Remove jessica from left eyebrow DVT prophylaxis:Low risk for VTE Discussed with the patient, nurse Discharge when improved, cleared by surgery and infectious disease Discussed with Dr Alarcon hand specialist, poss. Discharged on Sunday if improves. Patient likely needs IV antibiotics at discharge. Also following Dr. Christina ID. Patient is however also with hypoxia Problem Qualifiers (1) Bite from cat: Qualified Codes: W55.01XD - Bitten by cat, subsequent encounter (2) Cellulitis of upper extremity: Qualified Codes: L03.113 - Cellulitis of right upper limb Laura Michelle MD Nov 23, 2017 08:16
--- NOTE | 2017-11-23 16:42 | HHI.PR ---
Subjective Remarks complains of no pain complaint with limb elevation no numbness on oxygen for low saturation Objective Vital Signs Date Time Temp Pulse Resp B/P (MAP) Pulse Ox O2 Delivery O2 Flow Rate FiO2 11/23/17 15:06 92 Nasal Cannula 3.00 11/23/17 12:00 97.8 93 18 140/72 (94) 96 11/23/17 10:43 6.00 11/23/17 08:58 99 Nasal Cannula 6.00 11/23/17 08:00 97.3 93 19 142/68 (92) 96 11/23/17 04:00 97.8 95 20 146/78 (100) 92 11/23/17 00:00 97.9 73 20 168/83 (111) 93 11/22/17 20:02 90 Nasal Cannula 6.00 11/22/17 20:00 98.4 108 20 160/87 (111) 92 11/22/17 19:15 92 Nasal Cannula 6.00 11/22/17 18:06 94 Nasal Cannula 4.00 I/O 11/22/17 11/22/17 11/22/17 11/23/17 11/23/17 11/23/17 07:00 15:00 23:00 07:00 15:00 23:00 Intake Total 200 ml 1000 ml 360 ml Output Total 650 ml 650 ml 2650 ml Balance -450 ml 350 ml -2290 ml Intake Oral 200 ml 1000 ml 360 ml Output Urine Total 650 ml 650 ml 2650 ml # Bowel Movements 0 0 right upper extremity: intact dressing and splint examination after removal of splint and dressing reveals healing surgical incision site minimal swelling no drainage intact thumb active IP joint extension intact sensation distally CTA: negative for emboli bilateral emphysematous bullae with infiltrates US lower extremity: negative for clot had echo today Result Diagram: 11/22/17 0346 11/22/17 0346 Assessment and Plan Assessment and Plan 77 year old male s/p exploration, extensor tenosynovectomy with release II and III compartments right wrist POD 7, exploration repair EPL right wrist POD4 Plan: dry dressing applied New thumb spica splint applied keeping the wrist in extension and IP joint of the thumb in hyperextension cleared for discharge from hand surgery on IV antibiotics based on ID recommendation follow up in office in 10 days time Ever Conner MD Nov 23, 2017 16:42
--- NOTE | 2017-11-23 17:02 | ECHRPT ---
Indication: HEART FAILURE CONCLUSIONS Normal left ventricular size. Mild concentric left ventricular hypertrophy. The left ventricular systolic function is low normal with an estimated ejection fraction in the rang e of 50- 55%. Trace mitral valve regurgitation. There is trace tricuspid valve regurgitation. The estimated pulmonary arterial pressure is 42.5 mmHg. Doppler parameters are consistent with impaired left ventricular relaxtion (grade 1 diastolic dysfun ction). BP: 159 / 81 HR: 104 Rhythm: Sinus MEASUREMENTS (Male / Female) Normal Values Technical Quality:Fair 2D ECHO LV Diastolic Diameter PLAX 4.5 cm 4.2 - 5.9 / 3.9 - 5.3 cm LV Systolic Diameter PLAX 3.2 cm IVS Diastolic Thickness 1.1 cm 0.6 - 1.0 / 0.6 - 0.9 cm LVPW Diastolic Thickness 1.1 cm 0.6 - 1.0 / 0.6 - 0.9 cm LV Relative Wall Thickness 0.5 RV Internal Dim ED PLAX 2.4 cm LVOT Diameter 2.3 cm Aortic Root Diameter 3.5 cm LA Systolic Diameter LX 3.0 cm 3.0 - 4.0 / 2.7 - 3.8 cm M-MODE AV Cusp Separation MM 1.9 cm DOPPLER AV Peak Velocity 128.0 cm/s AV Peak Gradient 6.6 mmHg AV Mean Gradient 4.0 mmHg AV Velocity Time Integral 26.2 cm LVOT Peak Velocity 122.0 cm/s LVOT Peak Gradient 6.0 mmHg LVOT Velocity Time Integral 23.0 cm AV Area Cont Eq vti 3.6 cm AV Area Cont Eq pk 4.0 cm Mitral E Point Velocity 99.2 cm/s Mitral A Point Velocity 116.0 cm/s Mitral E to A Ratio 0.9 LV E' Lateral Velocity 8.8 cm/s Mitral E to LV E' Lateral Ratio 11.3 LV E' Septal Velocity 6.9 cm/s Mitral E to LV E' Septal Ratio 14.3 TR Peak Velocity 285.0 cm/s TR Peak Gradient 32.5 mmHg Right Atrial Pressure 10.0 mmHg Pulmonary Artery Systolic Pressu 42.5 mmHg Right Ventricular Systolic Press 42.5 mmHg PV Peak Velocity 49.6 cm/s PV Peak Gradient 1.0 mmHg FINDINGS LEFT VENTRICLE Normal left ventricular size. Mild concentric left ventricular hypertrophy. The left ventricular systolic function is low normal with an estimated ejection fraction in the rang e of 50- 55%. Doppler parameters are consistent with impaired left ventricular relaxtion (grade 1 diastolic dysfun ction). RIGHT VENTRICLE Normal right ventricular size and systolic function. LEFT ATRIUM The left atrial size is normal. RIGHT ATRIUM The right atrial size is normal. ATRIAL SEPTUM No atrial level shunt is demonstrated by color flow Doppler interrogation. AORTA The aortic root and proximal ascending aorta are normal in size on limited imaging. MITRAL VALVE Structurally normal mitral valve. Trace mitral valve regurgitation. AORTIC VALVE Trileaflet aortic valve. No aortic valve stenosis or regurgitation. TRICUSPID VALVE There is trace tricuspid valve regurgitation. The estimated pulmonary arterial pressure is 42.5 mmHg. PULMONARY VALVE No pulmonary valve regurgitation or stenosis. VESSELS The inferior vena cava is normal in size. PERICARDIUM No pericardial effusion. Grover Ragsdale MD, FACC (Electronically Signed) Final Date:23 November 2017 17:01
[2017-11-23] MEDS: ENOXAPARIN SODIUM 60 MG/0.6 ML SYRINGE SQ SCH (20:13)
[2017-11-23] MEDS: ACETAMINOPHEN/HYDROcodone 325 MG/10 MG TAB PO PRN (20:14)
[2017-11-24] VITALS (7 sets, daily range): BP systolic 146–157; BP diastolic 61–78; PULSE 70–98; RESP 16–20; TEMP 97.8–98.4; O2SAT 93–99
[2017-11-24] MEDS: AMPICILLIN/SULBAC 3 GM/NS 100 ML IV SCH ×6 (01:32→13:16)
[2017-11-24] MEDS: CEFEPIME INJ 2,000 MG in SODIUM CHLORIDE 0.9% INJ 100 ML IV SCH ×2 (02:45→10:06)
[2017-11-24] MEDS: AZITHROMYCIN INJ 500 MG in SODIUM CHLOR 0.9% 250 ML INJ 250 ML IV SCH (02:45)
[2017-11-24] MEDS: RESP: ALBUTEROL 2.5 MG/IPRATROPIUM 0.5 MG NEB (SCH) INH (03:23)
[2017-11-24] MEDS ORDERED: POTASSIUM CHLORIDE 10 MEQ CONTROLLED RELEASE TAB PO ONE (08:00)
[2017-11-24] MEDS ORDERED: MAGNESIUM OXIDE 400 MG TAB PO ONE (08:00)
[2017-11-24] MEDS ORDERED: PERI PO (08:01)
[2017-11-24] MEDS ORDERED: HYDR12.57 PO (08:01)
[2017-11-24] MEDS ORDERED: NORC5TAB PO (08:01)
--- NOTE | 2017-11-24 08:02 | HHI.FF ---
Face to Face Verification Diagnosis: (1) Cellulitis of upper extremity (2) Bite from cat (3) Cat bite of multiple sites of right hand and wrist with infection (4) extensor tenosynovitis II and III compartments (5) rupture extensor pollicis longus right thumb zone V (6) COPD (chronic obstructive pulmonary disease) (7) Acute respiratory failure (8) Hypertension (9) Hypoxia Physical Therapy Order: Evaluate and Treat Home Health Nursing Order: Medical education Signs/symptoms of disease process Oxygen administration education Medication education-adverse effect Nursing assessment with vital signs Telehealth I have seen patient Meliton Goyal on 11/24/17. My clinical findings support the need for the requested home health care services because: Ltd mobility - disease progression Patient has SOB I certify that my clinical findings support that this patient is homebound because: Post-op weakness Hx COPD- exertion dyspnea/weakness Laura Michelle MD Nov 24, 2017 08:02
--- NOTE | 2017-11-24 08:02 | HHI.DS ---
Discharge Summary Admission Date Nov 15, 2017 at 19:47 Discharge Date: Nov 24, 2017 Admitting Diagnosis CELLULITIS, CAT BITE (1) Bite from cat ICD Code: W55.01XA - Bitten by cat, initial encounter Status: Acute (2) Cellulitis of upper extremity ICD Code: L03.119 - Cellulitis of unspecified part of limb Status: Acute Procedures s/p Exploration, incision and drainage, extensor tenosynovectomy and release, second and third compartments, right wrist 11/16/17 With extensor inflammation II, III and IV compartments complete tear of extensor pollicis longus tendon zone V tear of the Extensor carpi radialis brevis with loss of tendon substance s/p exploration, wash, debridement, repair of extensor pollicis longus right wrist by Dr Conner hand surgeon on 11/19/17 Brief History - From Admission 77-year-old male with a past medical history significant for depression and history of WPW status post ablation presents the emergency department for the evaluation of a swollen, painful right hand. The patient reports that on Sunday night her cat bit him. Patient states his cat is up-to-date on all his vaccinations. By Sunday morning the patient was seen in urgent care and given tetanus and Augmentin. Despite compliance with the medication the patient 's symptoms did not improve and he was seen again in urgent care who recommended evaluation in the emergency department. On Sunday, the patient was seen in the ER at [facility] who gave him 1 dose of IV antibiotics and referred him to a hand surgeon. The patient contacted the hand surgeon who recommended evaluation at [place]. The patient denies any fever/chills. No chest pain or shortness of breath. No abdominal pain. No nausea/vomiting/ diarrhea. No lateralizing signs/symptoms. CBC/BMP: 11/22/17 0346 11/22/17 0346 Significant Findings Laboratory Tests Test 11/21/17 17:22 11/22/17 03:46 Blood Gas Oxygen Saturation 84 % (90-100) Arterial Blood Partial Pressure O2 52 mmHg (61-120) Blood Gas Hemoglobin 11.6 G/DL (12.0-16.0) Red Blood Count 3.43 MIL/MM3 (4.50-5.90) Hemoglobin 10.0 GM/DL (13.0-17.0) Hematocrit 28.7 % (39.0-51.0) Platelet Count 87 TH/MM3 (150-450) Monocytes (%) (Auto) 13.4 % (0.0-8.0) Lymphocytes # (Auto) 0.6 TH/MM3 (1.0-4.8) Platelet Estimate LOW (NORMAL) Random Glucose 114 MG/DL (74-106) Calcium Level 7.5 MG/DL (8.5-10.1) Magnesium Level 1.2 MG/DL (1.5-2.5) Potassium Level 3.2 MEQ/L (3.5-5.1) Imaging Last Impressions Lower Extremity Ultrasound 11/21/17 0000 Signed Impressions: CONCLUSION: 1. No DVT identified. Chest X-Ray 11/21/17 Signed Impressions: CONCLUSION: Bilateral pulmonary opacity unchanged that may represent chronic lung disease, infection, or asymmetric pulmonary edema. CT Angiography 11/21/17 0000 Signed Impressions: CONCLUSION: 1. Negative for central pulmonary emboli 2. Marked emphysematous changes and interstitial basilar infiltrate. 3. Moderate bilateral pleural effusions. Hand X-Ray 11/15/17 1732 Signed Impressions: CONCLUSION: Negative examination PE at Discharge GENERAL: 77 yo male, appears in NAD SKIN: Warm and dry.dressing to right arm; elevated to Pole CARDIOVASCULAR: Regular rate and rhythm without murmurs, gallops, or rubs. RESPIRATORY: Breath sounds equal bilaterally. No accessory muscle use. GASTROINTESTINAL: Abdomen soft, non-tender, nondistended. MUSCULOSKELETAL: No cyanosis, or edema. RUE in dressing and elevated to pole BACK: Nontender without obvious deformity. No CVA tenderness. Pt update on day of discharge Patient feels much better. Still requiring oxygen. He is eager to go home. Failed oxygen walking test will have oxygen at home. No pain in his hand. Able to ambulate. No fever or chills. Cleared by consultants for discharge. Discussed with infectious disease specialist and hand surgeon. Discharge plan was discussed at length with the patient and family as well. Hospital Course 77-year-old man with Cat bite/cellulitis. Cat bite to the right wrist with extensor tenosynovitis second and third compartments, with rupture of extensor pollicis longus tendon , zone 5, right wrist. CRP, ESR elevated Hand surgery consulted, appreciate assistance. s/p Exploration, incision and drainage, extensor tenosynovectomy and release, second and third compartments, right wrist 11/16/17 With extensor inflammation II, III and IV compartments complete tear of extensor pollicis longus tendon zone V tear of the Extensor carpi radialis brevis with loss of tendon substance s/p exploration, wash, debridement, repair of extensor pollicis longus right wrist by Dr Conner hand surgeon on 11/19/17 Continue with Unasyn pending culture report Consult infectious disease specialist, appreciate recs. Change Unasyn to augmentin PO and cont 2 weeks of tx from I+D Acute respiratory failure. Hypoxia . COPD without exacerbation at this time The patient is requiring more O2. Hypoxia. CXR reviewed with bilateral pneumonia and bilateral pleural effusions on CXR . IVF stopped. Tachycardic but no leukocytosis or fevers. Add cefepime and azithromycin IV abx Started IS Add acapella Doppler US no DVT. CT angio no PE. Infiltrates and bilateral effusions. BNP is also elevated. 2D echo normal ejection fraction. Patient received Lasix. Has a good urine output. Monitor oxygen saturation. Continue oxygen by nasal cannula to keep oxygen saturation more than 92% Monitor urine OP and kidney function. PFT as OP duonebs, pulmicort To follow up as op with PCP and pulm Depression Continue Depression Continue home Prozac Remove jessica from left eyebrow DVT prophylaxis:Low risk for VTE Cleared by hand surgery and infectious disease for DC. Change Unasyn to augmentin and cont 2 weeks of tx from [facility] per ID recommendations Patient is however also with hypoxia. Patient requires oxygen at home. He failed oxygen walking test. Discharge home in stable condition with home health and patient will have oxygen at home. Also he will follow up with PCP and consultants. To have pulmonary function test as outpatient. Pt Condition on Discharge: Stable Discharge Disposition: Disch w/ Home Health Serv Discharge Time: > 30 minutes Discharge Instructions DIET: Follow Instructions for: Heart Healthy Diet Activities you can perform: Regular-No Restrictions Follow up Referrals: Appointment for Follow Up @ DR. CONNER Appointment for Follow Up @ DR. QUEZADA Hand Surgery - 1 Week with Ever Conner MD Infectious Disease - 1 Week with Marilou Taylor MD PCP Follow-up - 2-3 Days PCP Follow-up @ [facility] Pulmonology - 1 Week Pulmonology @ UNKNOWN New Orders: PFT PRE/POST BRONCH - 2 Weeks New Medications: Albuterol 18 GM Inh (Ventolin Hfa 18 GM Inh) 90 Mcg/Act Aer 2 PUFF INH Q4H PRN for SHORTNESS OF BREATH, #1 INHALER 0 Refills Amoxicillin-Clavulanate (Augmentin) 500-125 mg Tab 500 MG PO Q8H for Infection for 10 Days, TAB 0 Refills Budesonide Powder Inh (Pulmicort Flexhaler) 180 Mcg/Act Inhp 180 MCG INH Q12HR for Asthma Management, #1 INHALER 0 Refills Hydrochlorothiazide (Hydrochlorothiazide) 12.5 Mg Cap 12.5 MG PO DAILY for Blood Pressure Management, #30 CAP 0 Refills Hydrocodone-Acetaminophen ([place]) 5 Mg-325 Mg Tab 1 TAB PO Q6H PRN for PAIN, #15 TAB 0 Refills Lactobacillus Acidophilus (Lactinex) 1 Chew 1 TAB CHEW DAILY for Nutritional Supplement, #30 TAB 0 Refills Nebulizer (Nebulizer) 1 Mis Mis EA .XX DIRECTED for Breathing Treatment, #1 0 Refills Nystatin Liq (Nystatin Liq) 100,000 unit/ml Susp 5 ML SWISH-SWAL QID for Infection for 10 Days, ML 0 Refills Oxygen tank (Oxygen tank) 1 Ea Tank LITER JUSTYNA.CANULA CONTINUOUS for HYPOXEMIA PREVENTION, #4 Oxygen Concentrator Portable Gaseous 2 L/min via Nasal Cannula Continuous For 99 months Ranitidine (Ranitidine) 150 Mg Cap 150 MG PO DAILY for dyspepsia, #30 CAP 0 Refills Spacer/Device For Mdi (Inspirease Drug Delivery) 1 Ea Mis EA .XX DIRECTED, #1 0 Refills Tiotropium Inh (Spiriva Respimat Inh) 1.25 Mcg/Act Aero 2 PUFF INH DAILY for Asthma Management, #1 INHALER 0 Refills 1.25 mcg = 1 inhalation Sennosides-Docusate Sodium (Gnp Senna Plus 8.6-50 mg) 8.6 Mg-50 Mg Tab 1 TAB PO BID for Constipation, #60 TAB Continued Medications: Fluoxetine (Prozac) 10 Mg Cap 10 MG PO DAILY, #30 CAP 0 Refills Laura Michelle MD Nov 24, 2017 08:02
[2017-11-24] MEDS ORDERED: RANI150C PO (08:14)
[2017-11-24] MEDS ORDERED: OXYGENTANK NAS.CANULA ×2 (08:14→13:19)
[2017-11-24] MEDS ORDERED: NEBULIZER1 MI1 (08:14)
[2017-11-24] MEDS ORDERED: TIOT1AER2 INH (08:14)
[2017-11-24] MEDS ORDERED: INSPIREASE DRUG1 EA (08:14)
[2017-11-24] MEDS ORDERED: VENTAER INH (08:14)
[2017-11-24] MEDS ORDERED: AUGM875T3 PO (08:14)
[2017-11-24] MEDS ORDERED: PULM180I INH (08:15)
[2017-11-24] MEDS ORDERED: RESP: ALBUTEROL 2.5 MG/IPRATROPIUM 0.5 MG NEB (PRN) NEB (08:15)
[2017-11-24] MEDS ORDERED: NYST1000 SWISH-SWAL (08:16)
[2017-11-24] MEDS ORDERED: FUROSEMIDE 40 MG TAB PO SCH (09:00)
[2017-11-24] MEDS ORDERED: BUDESONIDE-FORMOTEROL 160/4.5 MCG INHALER INH SCH ×2 (09:00)
[2017-11-24] MEDS ORDERED: HYDROCHLOROTHIAZIDE 12.5 MG CAP PO SCH (09:00)
[2017-11-24] MEDS: NYSTATIN SUSP 500,000 U/5 ML CUP SWISH-SWAL SCH ×2 (09:25→13:16)
[2017-11-24] MEDS: FLUoxetine HCL 10 MG CAP PO SCH (09:26)
[2017-11-24] MEDS: guaiFENesin E.R. 600 MG TAB PO SCH (09:26)
[2017-11-24] MEDS: MAGNESIUM OXIDE 400 MG TAB PO SCH (09:27)
[2017-11-24] MEDS: DOCUSATE SODIUM 50 MG/SENNA 8.6 MG TAB PO SCH (09:27)
[2017-11-24] MEDS: SODIUM CHLORIDE 0.9% FLUSH 10 ML FLUSH IV FLUSH SCH (09:28)
[2017-11-24] MEDS: POTASSIUM CHLORIDE 10 MEQ CONTROLLED RELEASE TAB PO SCH (09:28)
[2017-11-24] MEDS ORDERED: AUGM500T7 PO (09:35)
[2017-11-24] MEDS ORDERED: LACTCHW3 CHEW (09:36)
[2017-11-24 13:12] LABS: CREATININE 0.88 MG/DL (0.60-1.30)
--- NOTE | 2017-11-24 13:37 | HHI.IDPN ---
Subjective Subjective Remarks doing well no fever Antibiotics Unasyn Lines Allergies: Coded Allergies: No Known Allergies (Unverified , 11/15/17) Objective . Vital Signs Date Time Temp Pulse Resp B/P (MAP) Pulse Ox O2 Delivery O2 Flow Rate FiO2 11/24/17 10:27 99 Nasal Cannula 4.00 11/24/17 10:24 4.00 11/24/17 09:51 Nasal Cannula 4.00 11/24/17 08:00 97.9 81 16 147/69 (95) 98 11/24/17 04:00 97.9 98 20 157/78 (104) 95 11/24/17 03:23 93 Nasal Cannula 3.00 11/24/17 00:00 98.4 90 20 148/77 (100) 93 11/23/17 21:14 18 11/23/17 20:00 99.1 92 20 157/78 (104) 95 11/23/17 20:00 95 Nasal Cannula 4.00 11/23/17 16:00 97.6 92 17 148/70 (96) 93 11/23/17 15:06 92 Nasal Cannula 3.00 11/24/17 11/24/17 11/25/17 15:00 23:00 07:00 Intake Total 200 ml Balance 200 ml IV Total 200 ml . Laboratory Tests Test 11/24/17 11:24 Blood Urea Nitrogen 8 MG/DL Creatinine 0.88 MG/DL Random Glucose 98 MG/DL Calcium Level 9.0 MG/DL Sodium Level 137 MEQ/L Potassium Level 4.1 MEQ/L Chloride Level 101 MEQ/L Carbon Dioxide Level 25.0 MEQ/L Anion Gap 11 MEQ/L Estimat Glomerular Filtration Rate 84 ML/MIN B-Type Natriuretic Peptide 180 PG/ML Imaging Last Impressions Lower Extremity Ultrasound 11/21/17 0000 Signed Impressions: CONCLUSION: 1. No DVT identified. Chest X-Ray 11/21/17 0000 Signed Impressions: CONCLUSION: Bilateral pulmonary opacity unchanged that may represent chronic lung disease, infection, or asymmetric pulmonary edema. CT Angiography 11/21/17 0000 Signed Impressions: CONCLUSION: 1. Negative for central pulmonary emboli 2. Marked emphysematous changes and interstitial basilar infiltrate. 3. Moderate bilateral pleural effusions. Hand X-Ray 11/15/17 2382 Signed Impressions: CONCLUSION: Negative examination Physical Exam CONSTITUTIONAL/GENERAL: This is an adequately nourished patient, in no apparent distress. MUSCULOSKELETAL: Extremities without clubbing, cyanosis, or edema. No joint tenderness or effusion noted. No calf tenderness. No mottling or clubbing. R hand with well approximated incision , small amount of redness, swelling minimal serosag d/c on the dressing Assessment & Plan Remarks sp Cat bite, right hand and wrist with infection, extensor tenosynovitis second and third compartments, right wrist. s/p I+D growing PASTEURELLA MULTOCIDA Pulm infiltrates favouring CHF Doubt PNA ( no fever, no leukocytosis, o expectoration, BNP 600+) change Unasyn to augmentin and cont 2 weeks of tx from I+[facility] [place] to dc home Dr Miguel Angel Christina,Lorna Savage MD Nov 24, 2017 13:37
[2017-11-24] MEDS ORDERED: RESP: ALBUTEROL 2.5 MG/IPRATROPIUM 0.5 MG NEB (SCH) NEB (14:00)
[2017-11-26] MEDS ORDERED: IPRASOL INH (09:37)
--- NOTE | 2017-11-28 11:17 | PQ ---
Physician Query Response Document PATIENT: FEROZ LAWSON : 1940 ADMIT DATE: 11/15/2017 7:47 PM DISCH DATE: 11/24/2017 3:00 PM RESPONDING PROVIDER #: [email or web address] QUERY TEXT: CHF Acuity and Type Congestive Heart Failure is documented in the Medical Record. Please document the type and acuity (in cludes probable or suspected) Such as: Type: -- Systolic -- Diastolic -- Combined -- Other, please specify Acuity: -- Acute -- Chronic -- Acute on chronic -- Other, please specify Also please document the underlying cause of the CHF (includes probable or suspected) If you have any additional questions/comments and/or concerns, please do not hesitate to reach out to the CDI/Coding Hotline, Ext. [phone]. The patient's Clinical Indicators include: ID Records Management Analyst documents CHF. CHF diagnosis not listed or ruled out in Discharge Summary. ID Progress Notes 11/22 Echo performed 11/23/17 with EF 50-55%. Discharge Summary documents: Acute respiratory failure. Hypoxia. COPD without exacerbation at this ti me. The patient is requiring more O2. Hypoxia. CXR reviewed with bilateral pneumonia and bilateral p leural effusions on CXR. IVF stopped. Tachycardic but no leukocytosis or fevers. Add cefepime and azithromycin IV abx. Started IS. Add acapella. Doppler US no DVT. CT angio no PE. Infiltrates and bilateral effusions. BNP is also elevated. 2D echo normal ejection fraction. Patient received Lasix. Has a good urine outp ut. Monitor oxygen saturation. Discussed with [facility]I Kyle Becerra: CHF can be present with a normal EF (this pt had elevated BNP and receiv ed IV Lasix - treatment for CHF). Query created by: Tomasa Bruce on 11/27/2017 3:38 PM RESPONSE TEXT: Patient with CHF with preserved EF, patient with ascites, and fluid overload , his BNP is elevated an d also received lasix Electronically signed by: Laura Michelle MD 11/28/2017 11:13 AM
== END 2017-11-24 15:00 | disposition home health service (06) | DRG 500 ==
LOC: NEPC 14:55 → NEDA 19:47 → N04A 22:30
PROVIDERS: ADMIT Hospitalist; ATTEND Hospitalist
PROC: 0LB50ZZ Excision of Right Lower Arm and Wrist Tendon, Open Approach (ICD-10-PCS; 2017-11-16)
PROC: 0LN50ZZ Release Right Lower Arm and Wrist Tendon, Open Approach (ICD-10-PCS; 2017-11-16)
PROC: 0L9 Tendons, Drainage (ICD-10-PCS; principal; 2017-11-16 21:08)
PROC: 0LQ50ZZ Repair Right Lower Arm and Wrist Tendon, Open Approach (ICD-10-PCS; 2017-11-19)
PROC: 0LB50ZZ Excision of Right Lower Arm and Wrist Tendon, Open Approach (ICD-10-PCS; 2017-11-19)
DX: M65.88 Other synovitis and tenosynovitis, other site (principal); J96.01 Acute respiratory failure with hypoxia; J18.9 Pneumonia, unspecified organism; A28.0 Pasteurellosis; I50.9 Heart failure, unspecified; R18.8 Other ascites; L03.113 Cellulitis of right upper limb; J44.0 Chronic obstructive pulmonary disease with (acute) lower respiratory infection; M66.241 Spontaneous rupture of extensor tendons, right hand; F32.9 Major depressive disorder, single episode, unspecified; Z87.891 Personal history of nicotine dependence; W55.01XA Bitten by cat, initial encounter
CPT/HCPCS: 36600; 71045; 71275; 73130; 76937; 80048; 80053; 82805; 83605; 83735; 83880; 84155; 85025; 85610; 85652; 86140; 87040; 87070; 87205; 93005; 93306; 93970; 94150; 94618; 94640; 94664; 94667; 94668; 96365; J0295; J0456; J0692; J1100; J1580; J1650; J1940; J2270; J2405; J3010; J3370; J7030; J7050; Q9967